=== PATIENT | male | born 1950 | race Caucasian/White ===

== ENCOUNTER 2018-07-23 11:33 | Inpatient (IN) ==
[2018-07-23] MEDS ORDERED: THIAMINE HCL 200 MG in SODIUM CHLORIDE 0.9% 50 ML IV STA ×2 (11:58→12:15)
[2018-07-23] MEDS ORDERED: MAGNESIUM SULFATE / D5W 1 GM/100 ML BAG IV ONE (11:58)
[2018-07-23] MEDS ORDERED: dilTIAZem HCl 5 MG/ML 5 ML VIAL IV STA ×2 (11:58→12:30)
--- NOTE | 2018-07-23 12:00 | Emergency Department Note ---
Entered by Francy Gruber acting as a scribe for Riley Bautista DO History of Present Illness General Chief complaint: Arrhythmia/Palpitations Stated complaint: SHORT OF BREAT,RAPID PULSE Source: patient History of Present Illness Onset (ago): week(s) (a few weeks) Location: chest Severity: similar to prior episodes (when he had pneumonia 1 year ago) Quality: + other (arrhythmia) Associated symptoms: + shortness of breath and + other (Positive rapid heart beat, bilateral leg swelling. 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 He reports he has been experiencing SOB and a rapid heart beat for the past few weeks. He notes he had pneumonia one year ago and this feels similar. Pt has bilateral leg swelling but denies any chest pain or a hx or an irregular heart rate. Pt drinks a six pack of beer a day and uses smokeless tobacco. Home Medications Home Medications Medication Instructions Recorded Confirmed Type No Known Home Medications 07/23/18 07/23/18 History Allergies Allergy/AdvReac Type Severity Reaction Status Date / Time No Known Drug Allergies Allergy Unknown Verified 07/23/18 12:15 Past Med/Surg History Medical History No significant past medical history History of pneumonia (Resolved) Surgical History History of vasectomy Social History Preferred Language: Kosovan Communication Ability: Effective Theatrical Performer Required: No Beliefs That Will Affect Care: None marital status: Current Living Situation: Spouse Other Information That Helps Us Care for You: No Feels Safe at Home: Yes Safety Concerns: Feels Safe At This Time Smoking Status: Current every day smoker Hx Alcohol Use: Yes Hx Substance Use: No Review of Systems See HPI for pertinent positives & negatives. and A total of 10 systems reviewed and were otherwise negative Physical Exam Vital Signs Vital Signs - 24 hr 07/23/18 11:38 07/23/18 11:48 07/23/18 11:50 Temperature 36.7 C Temperature Source Oral Sepsis Recent Fever Within 48 Hours No Sepsis New/Unexplained Change in Mental Status No Sepsis Action Taken by Nursing No Action Required Pulse Rate 122 H 121 H 121 H Pulse Rate [Finger] Pulse Rate from SpO2 Sensor Pulse Rhythm Regular Pulse Strength Normal Respiratory Rate 20 15 18 Respiratory Effort / Characteristics Non-Labored Spontaneous Respiratory Depth Normal Respiratory Pattern Regular Blood Pressure 222/148 H Blood Pressure [Left Arm] Blood Pressure [Right Arm] Blood Pressure Mean 172 Blood Pressure Mean [Left Arm] Blood Pressure Mean [Right Arm] Blood Pressure Position Sitting Blood Pressure Position [Left Arm] Blood Pressure Position [Right Arm] Pulse Oximetry 97 Oxygen Delivery Method Room Air 07/23/18 11:52 07/23/18 11:53 07/23/18 12:00 Temperature Temperature Source Sepsis Recent Fever Within 48 Hours Sepsis New/Unexplained Change in Mental Status Sepsis Action Taken by Nursing Pulse Rate 121 H 121 H Pulse Rate [Finger] 122 H Pulse Rate from SpO2 Sensor 121 H 122 H Pulse Rhythm Pulse Strength Respiratory Rate 20 19 13 Respiratory Effort / Characteristics Respiratory Depth Respiratory Pattern Blood Pressure 210/128 H 190/129 H Blood Pressure [Left Arm] Blood Pressure [Right Arm] 210/128 H Blood Pressure Mean 155 149 Blood Pressure Mean [Left Arm] Blood Pressure Mean [Right Arm] 155 Blood Pressure Position Blood Pressure Position [Left Arm] Blood Pressure Position [Right Arm] Pulse Oximetry 95 97 96 Oxygen Delivery Method Room Air 07/23/18 12:10 07/23/18 12:15 07/23/18 12:30 Temperature Temperature Source Sepsis Recent Fever Within 48 Hours Sepsis New/Unexplained Change in Mental Status Sepsis Action Taken by Nursing Pulse Rate 121 H 121 H 121 H Pulse Rate [Finger] Pulse Rate from SpO2 Sensor 121 H 122 H 121 H Pulse Rhythm Pulse Strength Respiratory Rate 18 15 27 H Respiratory Effort / Characteristics Respiratory Depth Respiratory Pattern Blood Pressure 179/123 H 198/123 H Blood Pressure [Left Arm] Blood Pressure [Right Arm] Blood Pressure Mean 141 148 Blood Pressure Mean [Left Arm] Blood Pressure Mean [Right Arm] Blood Pressure Position Blood Pressure Position [Left Arm] Blood Pressure Position [Right Arm] Pulse Oximetry 96 95 96 Oxygen Delivery Method 07/23/18 12:38 07/23/18 12:45 07/23/18 13:00 Temperature Temperature Source Sepsis Recent Fever Within 48 Hours Sepsis New/Unexplained Change in Mental Status Sepsis Action Taken by Nursing Pulse Rate 122 H 122 H Pulse Rate [Finger] 121 H Pulse Rate from SpO2 Sensor 122 H 122 H Pulse Rhythm Pulse Strength Respiratory Rate 22 18 18 Respiratory Effort / Characteristics Respiratory Depth Respiratory Pattern Blood Pressure 182/110 H 178/117 H Blood Pressure [Left Arm] Blood Pressure [Right Arm] 198/123 H Blood Pressure Mean 134 137 Blood Pressure Mean [Left Arm] Blood Pressure Mean [Right Arm] 148 Blood Pressure Position Blood Pressure Position [Left Arm] Blood Pressure Position [Right Arm] Pulse Oximetry 93 94 94 Oxygen Delivery Method Room Air 07/23/18 13:07 07/23/18 13:15 07/23/18 13:31 Temperature Temperature Source Sepsis Recent Fever Within 48 Hours Sepsis New/Unexplained Change in Mental Status Sepsis Action Taken by Nursing Pulse Rate 122 H 122 H Pulse Rate [Finger] 122 H Pulse Rate from SpO2 Sensor 122 H 123 H Pulse Rhythm Pulse Strength Respiratory Rate 17 19 18 Respiratory Effort / Characteristics Respiratory Depth Respiratory Pattern Blood Pressure 179/122 H 196/126 H Blood Pressure [Left Arm] Blood Pressure [Right Arm] 178/117 H Blood Pressure Mean 141 149 Blood Pressure Mean [Left Arm] Blood Pressure Mean [Right Arm] 137 Blood Pressure Position Blood Pressure Position [Left Arm] Blood Pressure Position [Right Arm] Pulse Oximetry 94 95 95 Oxygen Delivery Method Room Air 07/23/18 13:32 07/23/18 13:45 07/23/18 13:46 Temperature Temperature Source Sepsis Recent Fever Within 48 Hours Sepsis New/Unexplained Change in Mental Status Sepsis Action Taken by Nursing Pulse Rate 122 H 121 H 122 H Pulse Rate [Finger] Pulse Rate from SpO2 Sensor 122 H 122 H Pulse Rhythm Pulse Strength Respiratory Rate 17 20 Respiratory Effort / Characteristics Respiratory Depth Respiratory Pattern Blood Pressure 182/121 H 182/121 H Blood Pressure [Left Arm] Blood Pressure [Right Arm] Blood Pressure Mean 141 Blood Pressure Mean [Left Arm] Blood Pressure Mean [Right Arm] Blood Pressure Position Blood Pressure Position [Left Arm] Blood Pressure Position [Right Arm] Pulse Oximetry 95 96 Oxygen Delivery Method 07/23/18 13:51 07/23/18 13:52 07/23/18 13:56 Temperature Temperature Source Sepsis Recent Fever Within 48 Hours Sepsis New/Unexplained Change in Mental Status Sepsis Action Taken by Nursing Pulse Rate 119 H 118 H Pulse Rate [Finger] 120 H Pulse Rate from SpO2 Sensor 119 H 119 H Pulse Rhythm Pulse Strength Respiratory Rate 12 15 15 Respiratory Effort / Characteristics Respiratory Depth Respiratory Pattern Blood Pressure 172/125 H 163/122 H Blood Pressure [Left Arm] Blood Pressure [Right Arm] 182/121 H Blood Pressure Mean 140 135 Blood Pressure Mean [Left Arm] Blood Pressure Mean [Right Arm] 141 Blood Pressure Position Blood Pressure Position [Left Arm] Blood Pressure Position [Right Arm] Pulse Oximetry 95 93 95 Oxygen Delivery Method Room Air 07/23/18 14:00 07/23/18 14:01 07/23/18 14:04 Temperature Temperature Source Sepsis Recent Fever Within 48 Hours Sepsis New/Unexplained Change in Mental Status Sepsis Action Taken by Nursing Pulse Rate 118 H 118 H 118 H Pulse Rate [Finger] Pulse Rate from SpO2 Sensor 119 H 118 H 118 H Pulse Rhythm Pulse Strength Respiratory Rate 22 23 18 Respiratory Effort / Characteristics Respiratory Depth Respiratory Pattern Blood Pressure 163/124 H 164/129 H Blood Pressure [Left Arm] Blood Pressure [Right Arm] Blood Pressure Mean 137 140 Blood Pressure Mean [Left Arm] Blood Pressure Mean [Right Arm] Blood Pressure Position Blood Pressure Position [Left Arm] Blood Pressure Position [Right Arm] Pulse Oximetry 96 95 96 Oxygen Delivery Method 07/23/18 14:05 07/23/18 14:06 07/23/18 14:07 Temperature Temperature Source Sepsis Recent Fever Within 48 Hours Sepsis New/Unexplained Change in Mental Status Sepsis Action Taken by Nursing Pulse Rate 118 H 118 H 118 H Pulse Rate [Finger] 118 H Pulse Rate from SpO2 Sensor 119 H 118 H 118 H Pulse Rhythm Pulse Strength Respiratory Rate 22 18 17 Respiratory Effort / Characteristics Non-Labored Spontaneous Respiratory Depth Normal Respiratory Pattern Regular Blood Pressure 163/126 H 165/123 H Blood Pressure [Left Arm] Blood Pressure [Right Arm] 165/123 H Blood Pressure Mean 138 137 Blood Pressure Mean [Left Arm] Blood Pressure Mean [Right Arm] 137 Blood Pressure Position Blood Pressure Position [Left Arm] Blood Pressure Position [Right Arm] Pulse Oximetry 94 95 96 Oxygen Delivery Method Room Air 07/23/18 14:08 07/23/18 14:09 07/23/18 14:10 Temperature Temperature Source Sepsis Recent Fever Within 48 Hours Sepsis New/Unexplained Change in Mental Status Sepsis Action Taken by Nursing Pulse Rate 118 H 118 H 118 H Pulse Rate [Finger] Pulse Rate from SpO2 Sensor 118 H 118 H 118 H Pulse Rhythm Pulse Strength Respiratory Rate 15 15 21 Respiratory Effort / Characteristics Respiratory Depth Respiratory Pattern Blood Pressure 165/125 H 154/118 H Blood Pressure [Left Arm] Blood Pressure [Right Arm] Blood Pressure Mean 138 130 Blood Pressure Mean [Left Arm] Blood Pressure Mean [Right Arm] Blood Pressure Position Blood Pressure Position [Left Arm] Blood Pressure Position [Right Arm] Pulse Oximetry 95 94 96 Oxygen Delivery Method 07/23/18 14:12 07/23/18 14:13 07/23/18 14:14 Temperature Temperature Source Sepsis Recent Fever Within 48 Hours Sepsis New/Unexplained Change in Mental Status Sepsis Action Taken by Nursing Pulse Rate 118 H 117 H Pulse Rate [Finger] 118 H 118 H Pulse Rate from SpO2 Sensor 118 H Pulse Rhythm Pulse Strength Respiratory Rate 17 20 25 H Respiratory Effort / Characteristics Non-Labored Spontaneous Non-Labored Spontaneous Respiratory Depth Normal Normal Respiratory Pattern Regular Regular Blood Pressure 165/121 H Blood Pressure [Left Arm] Blood Pressure [Right Arm] 154/118 H 165/121 H Blood Pressure Mean 135 Blood Pressure Mean [Left Arm] Blood Pressure Mean [Right Arm] 130 135 Blood Pressure Position Blood Pressure Position [Left Arm] Blood Pressure Position [Right Arm] Pulse Oximetry 95 94 Oxygen Delivery Method Room Air Room Air 07/23/18 14:15 07/23/18 14:27 07/23/18 14:29 Temperature Temperature Source Sepsis Recent Fever Within 48 Hours Sepsis New/Unexplained Change in Mental Status Sepsis Action Taken by Nursing Pulse Rate 117 H 116 H Pulse Rate [Finger] 117 H Pulse Rate from SpO2 Sensor 117 H Pulse Rhythm Pulse Strength Respiratory Rate 15 16 Respiratory Effort / Characteristics Respiratory Depth Respiratory Pattern Blood Pressure 152/119 H 152/119 H Blood Pressure [Left Arm] Blood Pressure [Right Arm] 152/119 H Blood Pressure Mean 130 Blood Pressure Mean [Left Arm] Blood Pressure Mean [Right Arm] 130 Blood Pressure Position Blood Pressure Position [Left Arm] Blood Pressure Position [Right Arm] Pulse Oximetry 95 95 Oxygen Delivery Method Room Air 07/23/18 15:34 07/23/18 15:45 07/23/18 16:00 Temperature 36.6 C Temperature Source Oral Sepsis Recent Fever Within 48 Hours Sepsis New/Unexplained Change in Mental Status Sepsis Action Taken by Nursing Pulse Rate Pulse Rate [Finger] 103 H 108 H Pulse Rate from SpO2 Sensor Pulse Rhythm Pulse Strength Respiratory Rate 14 14 18 Respiratory Effort / Characteristics Non-Labored Respiratory Depth Normal Respiratory Pattern Blood Pressure Blood Pressure [Left Arm] Blood Pressure [Right Arm] 166/103 H 165/109 H Blood Pressure Mean Blood Pressure Mean [Left Arm] Blood Pressure Mean [Right Arm] 124 127 Blood Pressure Position Blood Pressure Position [Left Arm] Blood Pressure Position [Right Arm] Sitting Pulse Oximetry 95 95 92 Oxygen Delivery Method Room Air Room Air Room Air 07/23/18 19:10 Temperature 37.0 C Temperature Source Oral Sepsis Recent Fever Within 48 Hours Sepsis New/Unexplained Change in Mental Status Sepsis Action Taken by Nursing Pulse Rate Pulse Rate [Finger] 80 Pulse Rate from SpO2 Sensor Pulse Rhythm Pulse Strength Respiratory Rate 18 Respiratory Effort / Characteristics Respiratory Depth Normal Respiratory Pattern Blood Pressure Blood Pressure [Left Arm] 129/82 Blood Pressure [Right Arm] Blood Pressure Mean Blood Pressure Mean [Left Arm] 97 Blood Pressure Mean [Right Arm] Blood Pressure Position Blood Pressure Position [Left Arm] Sitting Blood Pressure Position [Right Arm] Pulse Oximetry 95 Oxygen Delivery Method Room Air GENERAL: Patient is awake alert in no acute distress patient is resting comfortably and showing no signs of anxiety EYES: The conjunctivae are clear. The pupils are round and reactive. EARS, NOSE, MOUTH AND THROAT: The nose is without any evidence of any deformity. Mucous membranes are moist tongue is midline NECK: The neck is nontender and supple. RESPIRATORY: Normal respiratory effort is noted there is no evidence of wheezing rhonchi or rales CARDIOVASCULAR: Tachycardic rate with regular rhythm was noted. There is no definite murmur noted to auscultation. GASTROINTESTINAL: The abdomen is moderately distended but soft. There is no tenderness guarding or rigidity. PELVIS: The Pelvis is stable. No tenderness to palpation is noted. BACK: No midline tenderness or or step-off noted range of motion in flexion extension as well as rotation no signs of muscle spasm noted MUSCULOSKELETAL/EXTREMITIES: There is no evidence of gross deformity full range of motion is noted in the hips and shoulders SKIN: There is no obvious evidence of any rash. Pedal edema was noted bilaterally. NEUROLOGIC: Patient is awake alert and oriented x3. Course 1154: Past medical records reviewed. The patient was evaluated in room D1, and a complete history and physical examination were performed. 1346: I reviewed the patient's case with Tanika Adams. Dr. Sagastume, [facility] Hospitalist will evaluate the patient for further manage ment. Consultations Consultation #1: I reviewed the patient's case with Tanika Adams. Tanika Orr Hospitalist will evaluate the patient for further management. Time: 13:46 Administered Medications Atorvastatin Calcium (Lipitor) 80 mg PO QAM [facility] Stop: 08/22/18 17:44 Last Admin: 07/23/18 18:26 Dose: 80 mg Documented by: [id number] Diltiazem HCl 125 mg/ Dextrose 125 mls @ 5 mls/hr IV .Q24H CARLOS A; Protocol Stop: 08/22/18 14:44 Last Titration: 07/23/18 16:25 Dose: 10 mg/hr, 10 mls/hr Documented by: [id number] Admin: 07/23/18 15:30 Dose: 5 mg/hr, 5 mls/hr Documented by: [id number] Cosigned by: [id number] Heparin Sodium/Dextrose (Heparin Sodium/Dextrose) 25,000 units in 500 mls @ 32 mls/hr IV .[id number] CARLOS A; Protocol Stop: 08/22/18 14:44 Last Admin: 07/23/18 15:30 Dose: 1,600 units/hr, 32 mls/hr Documented by: [id number] Cosigned by: [id number] Metoprolol Tartrate (Lopressor) 12.5 mg PO Q6 CARLOS A Stop: 08/22/18 17:59 Last Admin: 07/23/18 18:26 Dose: 12.5 mg Documented by: [id number] Discontinued Medications Diltiazem HCl (Cardizem) 10 mg IV NOW STA Stop: 07/23/18 11:59 Last Admin: 07/23/18 12:05 Dose: 10 mg Documented by: [id number] Cosigned by: [id number] Diltiazem HCl (Cardizem) 10 mg IV NOW STA Stop: 07/23/18 12:31 Last Admin: 07/23/18 12:33 Dose: 10 mg Documented by: [id number] Cosigned by: [id number] Gabapentin (Neurontin) 1,200 mg PO TODAY@1700 ONE Stop: 07/23/18 17:01 Last Admin: 07/23/18 17:24 Dose: 1,200 mg Documented by: [id number] Cosigned by: [id number] Heparin Sodium (Porcine) (Heparin Iv Bolus) 7,000 units IV NOW STA Stop: 07/23/18 14:42 Last Admin: 07/23/18 15:29 Dose: 7,000 units Documented by: [id number] Cosigned by: [id number] Heparin Sodium/Dextrose () 1 ea IV Q15M CARLOS A; Protocol Stop: 07/23/18 17:39 Last Admin: 07/23/18 18:24 Dose: Not Given Documented by: [id number] Magnesium Sulfate/Dextrose (Magnesium Sulfate / D5w) 1 gm in 100 mls @ 100 mls/hr IV ONE ONE Stop: 07/23/18 12:57 Last Infusion: 07/23/18 13:05 Dose: 0 mls/hr Documented by: [id number] Admin: 07/23/18 12:03 Dose: 100 mls/hr Documented by: [id number] Thiamine HCl 200 mg/ Sodium (Chloride) 52 mls @ 210 mls/hr IV NOW STA Stop: 07/23/18 12:29 Last Infusion: 07/23/18 13:02 Dose: 0 mls/hr Documented by: [id number] Admin: 07/23/18 12:46 Dose: 210 mls/hr Documented by: [id number] Furosemide 20 mg/ Syringe 2 mls @ 4 mls/min IV NOW ONE Stop: 07/23/18 16:46 Last Admin: 07/23/18 17:24 Dose: 4 mls/min Documented by: [id number] Cosigned by: [id number] Metoprolol Tartrate (Lopressor) 5 mg IV Q5M PRN PRN Reason: Tachycardia Stop: 08/22/18 13:32 Last Admin: 07/23/18 14:27 Dose: 5 mg Documented by: [id number] Admin: 07/23/18 14:09 Dose: 5 mg Documented by: [id number] Admin: 07/23/18 13:46 Dose: 5 mg Documented by: [id number] Medical Decision Making Differential Diagnosis Differential diagnosis: Etiologies such as premature contractions, electrolyte abnormality, cardiac dysrhythmia, thyroid dysfunction, pulmonary embolism, infection, gastrointestinal, as well as others were entertained. Medical Records Attestation: I reviewed the patient's medical records. Home Medications Current Medication List: was personally reviewed by me Laboratory Data Attestation: I reviewed the patient's lab results. Result diagrams: 07/23/18 11:47 07/23/18 11:47 Lab Results 07/23/18 07/23/18 07/23/18 Range/Units 11:47 11:47 11:47 WBC 12.82 H (4.8-10.8) K/uL RBC 5.01 (4.7-6.1) M/uL Hgb 16.4 (14.0-18.0) g/dL Hct 48.1 (42-52) % MCV 96.0 (80-100) fL MCH 32.7 (25-34) pg MCHC 34.1 (32-36) g/dL RDW Std Deviation 47.1 H (36.4-46.3) fL RDW Coeff of Patrick 13.4 (11.5-14.5) % Plt Count 345 (130-400) K/uL MPV 9.5 (7.4-10.4) fL Immature Gran % (Auto) 0.2 % Neut % (Auto) 78.6 % Lymph % (Auto) 8.2 % Roberts % (Auto) 12.4 % Eos % (Auto) 0.3 % Baso % (Auto) 0.3 % Immature Gran # (Auto) 0.03 H (0.00-0.02) K/uL Neut # (Auto) 10.07 H (1.4-6.5) K/uL Lymph # (Auto) 1.05 L (1.2-3.4) K/uL Roberts # (Auto) 1.59 H (0.11-0.59) K/uL Eos # (Auto) 0.04 (0-0.5) K/uL Baso # (Auto) 0.04 (0-0.2) K/uL PT 11.1 (9.0-12.0) Seconds INR 1.1 (0.9-1.1) APTT 26.2 (21.0-31.0) Seconds PTT Ratio 1.0 Sodium (136-145) mmol/L Potassium (3.5-5.1) mmol/L Chloride (98-107) mmol/L Carbon Dioxide (21-32) mmol/L Anion Gap (3-11) BUN (7-18) mg/dl Creatinine (0.6-1.4) mg/dl Est Cr Clr Drug Dosing ml/min Est GFR ( Amer) Est GFR (Non-Af Amer) BUN/Creatinine Ratio (10-20) Glucose (70-99) mg/dl Calcium (8.5-10.1) mg/dl Magnesium Cancelled Total Bilirubin (0.2-1) mg/dl AST (15-37) U/L ALT (12-78) U/L Alkaline Phosphatase (45-117) U/L Troponin I (0-0.045) ng/ml NT-Pro-B Natriuret Pep (0-900) pg/ml Total Protein (6.4-8.2) gm/dl Albumin (3.4-5.0) gm/dl Globulin (2.5-4.0) gm/dl Albumin/Globulin Ratio (0.9-2) TSH (0.300-4.500) uIu/ml Urine Color Urine Appearance (Clear) Urine pH (4.5-7.5) Ur Specific [place] (1.000-1.030) Urine Protein (Negative) Urine Glucose (UA) (Negative) Urine Ketones (Negative) Urine Blood (Negative) Urine Nitrite (Negative) Urine Bilirubin (Negative) Urine Urobilinogen (Negative) Ur Leukocyte Esterase (Negative) 07/23/18 07/23/18 07/23/18 Range/Units 11:47 13:30 16:22 WBC (4.8-10.8) K/uL RBC (4.7-6.1) M/uL Hgb (14.0-18.0) g/dL Hct (42-52) % MCV (80-100) fL MCH (25-34) pg MCHC (32-36) g/dL RDW Std Deviation (36.4-46.3) fL RDW Coeff of Patrick (11.5-14.5) % Plt Count (130-400) K/uL MPV (7.4-10.4) fL Immature Gran % (Auto) % Neut % (Auto) % Lymph % (Auto) % Roberts % (Auto) % Eos % (Auto) % Baso % (Auto) % Immature Gran # (Auto) (0.00-0.02) K/uL Neut # (Auto) (1.4-6.5) K/uL Lymph # (Auto) (1.2-3.4) K/uL Roberts # (Auto) (0.11-0.59) K/uL Eos # (Auto) (0-0.5) K/uL Baso # (Auto) (0-0.2) K/uL PT (9.0-12.0) Seconds INR (0.9-1.1) APTT (21.0-31.0) Seconds PTT Ratio Sodium 135 L (136-145) mmol/L Potassium 4.0 (3.5-5.1) mmol/L Chloride 103 (98-107) mmol/L Carbon Dioxide 25 (21-32) mmol/L Anion Gap 7.0 (3-11) BUN 15 (7-18) mg/dl Creatinine 1.24 (0.6-1.4) mg/dl Est Cr Clr Drug Dosing 70.4 ml/min Est GFR ( Amer) 68.3 Est GFR (Non-Af Amer) 58.9 BUN/Creatinine Ratio 11.9 (10-20) Glucose 130 H (70-99) mg/dl Calcium 8.7 (8.5-10.1) mg/dl Magnesium 2.3 Total Bilirubin 1.3 H (0.2-1) mg/dl AST 33 (15-37) U/L ALT 75 (12-78) U/L Alkaline Phosphatase 67 (45-117) U/L Troponin I 0.049 H* 0.070 H* (0-0.045) ng/ml NT-Pro-B Natriuret Pep 8076 H (0-900) pg/ml Total Protein 7.3 (6.4-8.2) gm/dl Albumin 3.7 (3.4-5.0) gm/dl Globulin 3.6 (2.5-4.0) gm/dl Albumin/Globulin Ratio 1.0 (0.9-2) TSH 2.590 (0.300-4.500) uIu/ml Urine Color Yellow Urine Appearance Clear (Clear) Urine pH 6.0 (4.5-7.5) Ur Specific [place] 1.010 (1.000-1.030) Urine Protein Negative (Negative) Urine Glucose (UA) Negative (Negative) Urine Ketones Trace H (Negative) Urine Blood Negative (Negative) Urine Nitrite Negative (Negative) Urine Bilirubin Negative (Negative) Urine Urobilinogen Negative (Negative) Ur Leukocyte Esterase Negative (Negative) Imaging Data Radiologist's Impression: Radiology results as stated below per my review and the radiologist's interpretation: SINGLE VIEW CHEST CLINICAL HISTORY: Generalized weakness. FINDINGS: An AP, portable, upright chest radiograph is obtained. No prior studies are available for comparison at the time of dictation. The examination is degraded by portable technique and patient rotation. The heart is enlarged and there is atherosclerotic calcification of the thoracic aorta. There is pulmonary vascular congestion. Perihilar airspace opacities likely represent a component of interstitial edema. There are small pleural effusions, right larger than left with bibasilar consolidation. No pneumothorax is seen. The skeletal structures are osteopenic. The bony thorax is grossly intact. IMPRESSION: 1. Cardiomegaly with evidence of congestive failure. 2. Perihilar airspace opacities likely represent a component of interstitial edema. Correlate clinically for evidence of a superimposed infectious/inflammatory pneumonitis. Radiographic follow-up to resolution is recommended. 3. There are small pleural effusions, right larger than left. Electronically signed by: Tee Mcnulty M.D. 07/23/2018 12:31 PM ECG Data Attestation: I personally reviewed and interpreted this ECG as follows: Indication: palpitations Rate (beats per minute): 121 Rhythm: atrial flutter Findings: + other (poor R wave progression noted, LVH was suggested by voltage criteria) and + ST depression (Inferior) Comparison ECG Date: no prior available Additional Comments: Repeat EKG: Atrial fibrillation, rate of 98, frequent PVCs noted. Similar to earlier tracing Blood Pressure Blood Pressure Findings: Elevated blood pressure Blood Pressure Disposition: further management by hospitalist [facility] Narrative The patient is a 67-year-old male who presented to the emergency department for an evaluation of palpitations. The patient was found to be in atrial flutter. His blood pressure was very elevated. He was also found to be in pulmonary edema. The patient was treated with IV magnesium IV thiamine IV Cardizem and IV Lopressor. His symptoms slowly improved while he was in the emergency department. The patient did have an abnormal EKG with an elevated troponin. I discussed his case with the on-call [facility] hospitalist group. They have agreed to evaluate the patient in the emergency department for further management and disposition. The patient was reevaluated multiple times. His condition continued to improve. Impression & Plan Atrial flutter with rapid ventricular response, Elevated troponin, Pulmonary edema Critical Care Time I have personally spent greater than 35 minutes of critical care time in the direct management of this patient. This includes bedside care, interpretation of diagnostic studies, and testing, discussion with consultants, patient, and family members, and other required patient management activities. This 35 minutes is in excess of all separately billable procedures. Critical Care Time: Yes Total Critical Care Time: 35 Discharge Plan Visit Data *Final* Discharge Date/Time: 07/23/18 15:45 Chief Complaint: Arrhythmia/Palpitations Stated Complaint: SHORT OF BREAT,RAPID PULSE ED Provider: Riley Bautista Discharge Problem: Atrial flutter with rapid ventricular response, Elevated troponin, Pulmonary edema Patient Disposition: Admitted As Inpatient Discharge Instructions Interventions: ED Discharge Assessment Last Done: 07/23/18 15:45 Discharge Problem: Pulmonary edema Qualifiers: Chronicity: acute Qualified Code(s): J81.0 - Acute pulmonary edema The scribe's documentation has been prepared under my direction and personally reviewed by me in its entirety. I confirm that the note above accurately refle cts all work, treatment, procedures, and medical decision making performed by me.
[2018-07-23 12:05] LABS: Basophils # (auto) 0.04 K/uL (0-0.2); Basophils % (auto) 0.3 %; Eosinophils # (auto) 0.04 K/uL (0-0.5); Eosinophils % (auto) 0.3 %; Hematocrit (blood only) 48.1 % (42-52); Hemoglobin 16.4 g/dL (14.0-18.0); Immature Granulocytes # (auto) 0.03 K/uL (0.00-0.02); Immature Granulocytes % (auto) 0.2 %; Lymphocytes # (auto) 1.05 K/uL (1.2-3.4); Lymphocytes % (auto) 8.2 %; Mean Corpuscular Hgb Conc 34.1 g/dL (32-36); Mean Platelet Volume 9.5 fL (7.4-10.4); Monocytes # (auto) 1.59 K/uL (0.11-0.59); Monocytes % (auto) 12.4 %; Neutrophils # (auto) 10.07 K/uL (1.4-6.5); Neutrophils % (auto) 78.6 %; Platelet Count 345 K/uL (130-400); RDW Coefficient of Variation 13.4 % (11.5-14.5); RDW Standard Deviation 47.1 fL (36.4-46.3); Red Blood Count 5.01 M/uL (4.7-6.1); White Blood Count 12.82 K/uL (4.8-10.8)
[2018-07-23 12:16] LABS: INR 1.1 (0.9-1.1); Partial Thromboplastin Time 26.2 Seconds (21.0-31.0); Prothrombin Time 11.1 Seconds (9.0-12.0)
[2018-07-23 12:27] LABS: Albumin Level 3.7 gm/dl (3.4-5.0); BUN Creatinine Ratio 11.9 (10-20); Calcium 8.7 mg/dl (8.5-10.1); Creatinine Clr Calc Pharmacy 70.4 ml/min; Est GFR (African American) 68.3; Est GFR (Non-African American) 58.9; Magnesium 2.3 mg/dl (1.8-2.4)
--- NOTE | 2018-07-23 12:33 | XRay Report ---
SINGLE VIEW CHEST CLINICAL HISTORY: Generalized weakness. FINDINGS: An AP, portable, upright chest radiograph is obtained. No prior studies are available for c omparison at the time of dictation. The examination is degraded by portable technique and patient rot ation. The heart is enlarged and there is atherosclerotic calcification of the thoracic aorta. There is pulmonary vascular congestion. Perihilar airspace opacities likely represent a component of inter stitial edema. There are small pleural effusions, right larger than left with bibasilar consolidation . No pneumothorax is seen. The skeletal structures are osteopenic. The bony thorax is grossly intact. IMPRESSION: 1. Cardiomegaly with evidence of congestive failure. 2. Perihilar airspace opacities likely represent a component of interstitial edema. Correlate clinica lly for evidence of a superimposed infectious/inflammatory pneumonitis. Radiographic follow-up to res olution is recommended. 3. There are small pleural effusions, right larger than left. Electronically signed by: Tee Mcnulty M.D. 07/23/2018 12:31 PM
[2018-07-23 12:44] LABS: Bilirubin,Total 1.3 mg/dl (0.2-1); Globulin 3.6 gm/dl (2.5-4.0); Total Protein 7.3 gm/dl (6.4-8.2); Troponin I 0.049 ng/ml (0-0.045)
[2018-07-23] MEDS: METOPROLOL TARTRATE 1 MG/ML VIAL IV PRN ×3 (13:46→14:27)
[2018-07-23 13:58] LABS: Appearance Urine Clear (Clear); Bilirubin Urine Negative (Negative); Blood Urine Negative (Negative); Color Urine Yellow; Glucose Urine UA Negative (Negative); Ketones Urine Trace (Negative); Leukocyte Esterase Urine Negative (Negative); Nitrite Urine Negative (Negative); Protein Urine Negative (Negative); Urobilinogen Urine Negative (Negative)
[2018-07-23] MEDS ORDERED: HEPARIN BOLUS ED USE ONLY IV STA (14:41)
[2018-07-23] MEDS: dilTIAZem HCl 125 MG in DEXTROSE 5% 100 ML IV SCH (15:30)
[2018-07-23] MEDS: HEPARIN STANDARD DEXTROSE 25,000 UNITS/500 ML IV SCH (15:30)
--- NOTE | 2018-07-23 15:59 | History & Physical Report ---
Date of Service July 23, 2018 Assessment & Plan (1) Atrial flutter with rapid ventricular response: In ED patient was noted to be in rapid atrial flutter with heart rates consistently in the 120s, elevated troponin 0 0.049, chest x-ray consistent with cardiomegaly and congestive changes with perihilar airspace opacity and interstitial edema Received IV diltiazem 10 mg bolus x2 and metoprolol IV x1 with slight decrease in heart rate to the 110s Blood pressure significantly elevated upon arrival at 222/148 and upon my evaluation was 166/103 Patient currently in rapid atrial flutter likely secondary to hypertensive heart disease, acute CHF, EtOH abuse -Admit to telemetry -Consult cardiology, Dr. Jacobo -Placed on diltiazem drip for rate control -Chadsvasc score =3, place on heparin gtt -Give Lasix IV 20 mg x1 secondary to congestive heart failure, he is Lasix margo so we will monitor for appropriate response for further diuresis -Monitor daily weights, strict I's and O's -Trend troponin every 6 hours, repeat ECG in a.m. -Obtain echocardiogram -Fasting lipid panel and A1c in a.m. (2) CHF (congestive heart failure): -Give Lasix IV 20 mg x1 now, monitor for appropriate response prior to additional dosing -Obtain echocardiogram -Strict I's and O's -Daily weights -EtOH cessation and nicotine cessation (3) Elevated troponin: -Plan as above (4) Hypertensive urgency: -Patient presented with BP 222/148 and upon my examination was 166/103 -Patient with likely undiagnosed hypertensive heart disease -Placing on diltiazem drip as well as IV Lasix -obtain adequate BP control and will likely need discharged on antihypertensive therapy (5) ETOH abuse: -Patient drinks 6 light beers daily, will place on alcohol withdrawal protocol with gabapentin taper and as needed lorazepam -Received IV thiamine while in ED -Will place on thiamine and folic acid supplementation daily -Recommend EtOH cessation (6) Tobacco abuse: -Patient currently does not wish to have nicotine patch, monitor -Discussed tobacco cessation (7) Full code status: Disposition: D/C to home when able Follow up: Patient will need to establish with primary care provider as well as appropriate cardiology follow-up Patient was seen and examined in collaboration with Dr. Salazar, please see addendum History of Present Illness Chief Complaint: FLORES times 3 weeks. Primary Care Provider: NO PCP This is a 67-year-old white male who has no known past medical history and has not sought medical care for 30+ years. is at bedside. He presents to [facility] secondary to FLORES times 3 weeks. Over the past 3 weeks patient has noticed increasing shortness of breath with exertion, including climbing steps at his house, paroxysmal nocturnal dyspnea relieved with sleeping in recliner, increased fatigue. Patient noticed yesterday when feeling pulse his heart was "beating very fast." "This may be scared which is why I came to ER." He denies any recent illness. He does not take any medications. He denies fever, chills, sweats, lightheadedness, dizziness, syncope, chest pain, shortness of breath at rest, coughing, hemoptysis, nausea, vomiting, diarrhea, abdominal pain, dysuria, increased frequency or urgency with urination. He denies any harvey weight gain and no overt swelling. He is a chronic tobacco abuser in which he chews 1 can of snuff a day and has a previous smoking history of 15-20 pack years. Further he drinks 6 light beers a day for many years. His father suffered a heart attack in his 30s, otherwise no known family history of heart disease, diabetes or CVA. His mother and father were both from cancer. Allergies Allergy/AdvReac Type Severity Reaction Status Date / Time No Known Drug Allergies Allergy Unknown Verified 07/23/18 12:15 Home Medications Home Medications Medication Instructions Recorded Confirmed Type No Known Home Medications 07/23/18 07/23/18 History Past Med/Surg History Medical History No significant past medical history History of pneumonia (Resolved) Surgical History History of vasectomy Social History Preferred Language: Malay Beliefs That Will Affect Care: None marital status: Current Living Situation: Spouse Other Information That Helps Us Care for You: No Feels Safe at Home: Yes Safety Concerns: Feels Safe At This Time Smoking Status: Current every day smoker Hx Alcohol Use: Yes Hx Substance Use: No Review of Systems All systems reviewed & are unremarkable except as noted in HPI & below Physical Exam Vital Signs (Past 24 Hours): Last Vital Signs Temp 36.7 C 07/23/18 11:38 Pulse 103 H 07/23/18 15:34 Resp 14 07/23/18 15:34 BP 166/103 H 07/23/18 15:34 Pulse Ox 95 07/23/18 15:34 Physical Exam: Gen: WD/WN, M, NAD, sitting up in bed, pleasant, conversing easily Head: Normocephalic, Atraumatic Eyes: Sclera normal, no conjunctival injection, PERRLA, EOMI ENT: Gross hearing intact, normal pharynx, mucous membranes moist Neck: supple, no adenopathy, No JVD, no bruit, Resp: Clear to auscultation b/l, no wheeze, rales, rhonchi. Normal insp/exp effort, no accessory muscle use CV: Tachycardic rate, regular rhythm, no murmur, rub, gallop, or ectopy Abd: Protuberant abdomen, umbilical hernia, diastases recti, +BS x 4, soft, nontender, Musculoskeletal: moves extremities active rom x 4, strength intact, good sports umpire strength Extremities: +1 pretibial edema bilaterally Skin: warm, moist, no rash, negative turgor, cap refill < 2sec Neuro: Alert and oriented x 3, speech normal, good mood/affect, cran nerve 2-12 intact grossly : deferred Results & Data Laboratory Results Short CBC 07/23/18 Range/Units 11:47 WBC 12.82 H (4.8-10.8) K/uL Hgb 16.4 (14.0-18.0) g/dL Hct 48.1 (42-52) % Plt Count 345 (130-400) K/uL BMP 07/23/18 11:47 Sodium 135 L Potassium 4.0 Chloride 103 Carbon Dioxide 25 BUN 15 Creatinine 1.24 Glucose 130 H Calcium 8.7 Cardiac Enzymes 07/23/18 Range/Units 11:47 Troponin I 0.049 H* (0-0.045) ng/ml Liver Function 07/23/18 Range/Units 11:47 Total Bilirubin 1.3 H (0.2-1) mg/dl AST 33 (15-37) U/L ALT 75 (12-78) U/L Alkaline Phosphatase 67 (45-117) U/L Albumin 3.7 (3.4-5.0) gm/dl Urine 07/23/18 Range/Units 13:30 Urine Color Yellow Urine Appearance Clear (Clear) Urine pH 6.0 (4.5-7.5) Ur Specific [place] 1.010 (1.000-1.030) Urine Protein Negative (Negative) Urine Glucose (UA) Negative (Negative) Diagnostic Findings CXR: IMPRESSION: 1. Cardiomegaly with evidence of congestive failure. 2. Perihilar airspace opacities likely represent a component of interstitial edema. Correlate clinically for evidence of a superimposed infectious/inflammatory pneumonitis. Radiographic follow-up to resolution is recommended. 3. There are small pleural effusions, right larger than left. Medications Administered Diltiazem HCl 125 mg/ Dextrose 125 mls @ 5 mls/hr IV .Q24H [facility]; Protocol Stop: 08/22/18 14:44 Last Admin: 07/23/18 15:30 Dose: 5 mg/hr, 5 mls/hr Documented by: [id number] Cosigned by: [id number] Heparin Sodium/Dextrose (Heparin Sodium/Dextrose) 25,000 units in 500 mls @ 32 mls/hr IV .[id number] [facility]; Protocol Stop: 08/22/18 14:44 Last Admin: 07/23/18 15:30 Dose: 1,600 units/hr, 32 mls/hr Documented by: [id number] Cosigned by: [id number] Metoprolol Tartrate (Lopressor) 5 mg IV Q5M PRN PRN Reason: Tachycardia Stop: 08/22/18 13:32 Last Admin: 07/23/18 14:27 Dose: 5 mg Documented by: [id number] Admin: 07/23/18 14:09 Dose: 5 mg Documented by: [id number] Admin: 07/23/18 13:46 Dose: 5 mg Documented by: [id number] Discontinued Medications Diltiazem HCl (Cardizem) 10 mg IV NOW STA Stop: 07/23/18 11:59 Last Admin: 07/23/18 12:05 Dose: 10 mg Documented by: [id number] Cosigned by: [id number] Diltiazem HCl (Cardizem) 10 mg IV NOW STA Stop: 07/23/18 12:31 Last Admin: 07/23/18 12:33 Dose: 10 mg Documented by: [id number] Cosigned by: [id number] Heparin Sodium (Porcine) (Heparin Iv Bolus) 7,000 units IV NOW STA Stop: 07/23/18 14:42 Last Admin: 07/23/18 15:29 Dose: 7,000 units Documented by: [id number] Cosigned by: [id number] Magnesium Sulfate/Dextrose (Magnesium Sulfate / D5w) 1 gm in 100 mls @ 100 mls/hr IV ONE ONE Stop: 07/23/18 12:57 Last Infusion: 07/23/18 13:05 Dose: 0 mls/hr Documented by: [id number] Admin: 07/23/18 12:03 Dose: 100 mls/hr Documented by: [id number] Thiamine HCl 200 mg/ Sodium (Chloride) 52 mls @ 210 mls/hr IV NOW STA Stop: 07/23/18 12:29 Last Infusion: 07/23/18 13:02 Dose: 0 mls/hr Documented by: [id number] Admin: 07/23/18 12:46 Dose: 210 mls/hr Documented by: [id number] ECG Rhythm: atrial flutter Findings: + nonspecific-ST abn and + prolonged QT (525ms) Code Status & VTE Plan Code Status Full Code VTE Prophylaxis Plan VTE Prophylaxis will be ordered: Yes Supervising Physician Co-Signing Physician Notes I have seen and examined the patient and have discussed the case with the provid er above. I agree with the assessment and plan as stated. DO Martin (1) CHF (congestive heart failure) Heart failure chronicity: acute Heart failure type: unspecified Qualified Code(s): I50.9 - Heart failure, unspecified
[2018-07-23] MEDS ORDERED: ZOLPIDEM TARTRATE 5 MG TAB PO PRN (16:18)
[2018-07-23] MEDS ORDERED: POLYETHYLENE (MIRALAX) 17 GM PACK PO PRN (16:18)
[2018-07-23] MEDS ORDERED: ACETAMINOPHEN 325 MG TAB PO PRN (16:18)
[2018-07-23] MEDS ORDERED: ALUMINUM/MAGNESIUM SUSP 30 ML UDC PO PRN (16:18)
[2018-07-23] MEDS ORDERED: MAGNESIUM HYDROXIDE SUSP 30 ML UDC PO PRN (16:18)
[2018-07-23] MEDS ORDERED: LORazepam 1 MG TAB PO PRN (16:18)
[2018-07-23] MEDS ORDERED: GABAPENTIN 1200MG ALCOHOL WITHDRAWAL LOAD PO STA (16:18)
[2018-07-23] MEDS ORDERED: ONDANSETRON INJ 2 MG/ML 2 ML VIAL IV PRN (16:18)
[2018-07-23] MEDS ORDERED: FUROSEMIDE 20 MG in SYRINGE 0 ML IV ONE (16:45)
[2018-07-23] MEDS ORDERED: GABAPENTIN 600 MG TAB PO ONE (17:00)
[2018-07-23 17:15] LABS: Troponin I 0.07 ng/ml (0-0.045)
[2018-07-23] MEDS: METOPROLOL TARTRATE 25 MG TAB PO SCH ×2 (18:26→22:47)
[2018-07-23] MEDS: ATORVASTATIN 40 MG TAB PO SCH (18:26)
--- NOTE | 2018-07-23 22:23 | Consultation Report ---
DATE OF CONSULTATION: 07/23/2018 INPATIENT CARDIOLOGY CONSULTATION CONSULTATION REQUESTED BY: Zahra Pizarro PA-C. REASON FOR CONSULTATION: Atrial flutter with rapid ventricular response. HISTORY OF PRESENT ILLNESS: Mr. Stovall is a very pleasant 67-year-old gentleman with no known medical history because he has not seen a physician in over 30 years. He presented to [facility] on 07/23/2018 with complaints of shortness of breath and a racing heart rate. The patient states that for the last several years, he has noticed that his breathing has not always been as good as he thought it could be, but particularly within the last month or so, he has noticed that it has been significantly declining. He states that for the last month or so, he started getting short of breath with less and less activity, particularly noting that walking up a flight of steps, he may have to stop in the middle to catch his breath. He denied any associated chest pain with this dyspnea and states that in the last week or so, he is also becoming dyspneic at rest, particularly he has noted that he has to get up every morning around 4:00 a.m. to catch his breath and from then on, he sleeps upright in a chair. His has also noticed that his energy levels are significantly decreased in the last week or so and his lower extremities and abdomen have become swollen. He denies any recent change in diet or increased salt intake. He denies ever experiencing any chest pain to his knowledge in his adult lifetime. When questioning on whether or not he has ever had a fever with no explained origin, he states that he had pneumonia several years ago, but no other remarkable events and he denies any rheumatic fever as a child. With his breathing significantly worsened, he came into the Emergency Department and upon arrival, he was found to be in atrial flutter with variable conduction at 120 beats a minute and significantly hypertensive in the 160s/120s. He was started on heparin and Cardizem drip for rate control. He was given 20 mg of IV Lasix with some urination afterwards and admitted to telemetry. On telemetry, his rate has improved to consistently in the 90s-100s, still in atrial flutter. He has remained somewhat hypertensive in the 150s to 160s systolic, and he states he has not ambulated yet, so he does not know if his dyspnea has improved at all, but again he denies any chest pain. The patient's , his daughter and son-in-law were in the room during his time of the examination, and again they agree with the description of his symptoms, they particularly notes that he walks their dog twice a day and he has been having more and more difficulty doing that over the last several weeks. PAST SURGICAL HISTORY: Vasectomy. PAST MEDICAL HISTORY: Denies. FAMILY HISTORY: Noncontributory. SOCIAL HISTORY: The patient chews a can of smokeless tobacco a day and drinks 6 light beers a day Deyanira Light, but denies any recreational drug use. He is and lives at home with his . 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 He exercises by walking the dog. REVIEW OF SYSTEMS: As per HPI. All other review of systems reviewed and negative at this time. ALLERGIES: No known drug allergies. MEDICATIONS AN OUTPATIENT: Denies. PHYSICAL EXAMINATION: VITAL SIGNS: Temperature 36.6, pulse 108, respiratory rate 12, blood pressure 165/109. GENERAL: Awake, alert, oriented x3, in no acute distress, seated upright in a chair. HEENT: Normocephalic, atraumatic. Pupils equal, round, reactive to light and accommodation. Extraocular muscles intact. Anicteric sclerae. Moist mucous membranes. NECK: No JVD, no bruit. CARDIOVASCULAR: Irregularly irregular. A 3/6 holosystolic ejection murmur greatest at the left sternal border, fifth intercostal space midclavicular line with radiation to the left axilla. No rubs. PULMONARY: Scant bibasilar crackles, otherwise clear. No rhonchi or wheezing. ABDOMEN: Distended, bowel sounds x4. No rebound, guarding, or tenderness. No organomegaly. EXTREMITIES: +2 bilateral lower extremity pitting edema. No clubbing or cyanosis. +2 pedal pulses bilaterally. SKIN: Warm and dry. TEST RESULTS: A 12-lead EKG performed in the Emergency Department independently reviewed at this time shows atrial flutter with approximately 2:1 conduction, poor R-wave progression across the precordium, left anterior fascicular block, no significant ST segment elevations or depressions. A 2D echocardiogram was read as normal LV chamber size with borderline global wall thinning, severely reduced LV systolic function, EF 15%-20%, severe global hypokinesis with dyskinetic anterior septal wall, presence of left atrial enlargement denotes diastolic dysfunction. Right ventricular cavity size is normal with reduced RV systolic function by TAPSE. Mild aortic valve sclerosis without stenosis, mild aortic regurgitation, mild mitral annular calcification with a heavily calcified posterior mitral annulus consistent with old healed endocarditis. No fistulous tract observed, mild intravalvular regurgitation, mild mitral stenosis is present. Mild tricuspid regurgitation, pulmonary hypertension is present with a PA systolic pressure of 41 mmHg assuming a right atrial pressure of 15 mmHg. LABORATORY STUDIES OF SIGNIFICANCE: Sodium 135, potassium 4, BUN 15, creatinine 1.2. Point of care glucose of 130. Initial troponin of 0.05 followed by 0.07. ProBNP of 8000. TSH of 2.6. Chest x-ray was read as cardiomegaly with evidence of congestive failure, perihilar airspace opacities likely represent a component of interstitial edema. Correlate clinically for evidence of a superimposed infectious or inflammatory pneumonitis. Radiographic followup to resolution is recommended. There is a small pleural effusion, right greater than left. IMPRESSION: 1. Newly discovered atrial flutter with rapid ventricular response. 2. Severe cardiomyopathy of undetermined origin, ejection fraction 15%-20%. 3. 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 4. Pulmonary hypertension. 5. Reduced right ventricular systolic function. RECOMMENDATIONS: It was my pleasure to see Mr. Stovall in consultation today. The pathophysiology of atrial flutter as well as severe cardiomyopathy was discussed with the patient and his family in great detail. They were counseled that there is a wide differential diagnosis as to the possible cause of his cardiomyopathy including tachycardia-induced cardiomyopathy and coronary artery disease. At this time, we will continue with attempted rate control of his atrial flutter and given his reduced LV systolic function, I would like to start him on beta parish and up titrate the beta parish and try and titrate off the calcium channel parish as soon as possible given his negative chronotropic effects. On exam, he is somewhat volume overloaded; however, given his pulmonary hypertension and reduced RV systolic function, I would hold off on any further diuresis at this point given the fact that he may be significantly preload dependent. He has already been started on heparin, which I agree with. I will also start him on aspirin and high-dose statin. I would recommend p.r.n. Ativan and close followup for possible delirium tremens given his significant alcohol use. The patient and his family were counseled that ultimately the patient will require cardiac catheterization and likely transesophageal echocardiogram-guided cardioversion with a cardiac catheterization likely to be done first. The patient and his family were obviously overwhelmed by this news given the fact that he has not had any significant medical history. I answered all their questions to their satisfaction and I have recommended that they will have more questions to come that he should write them down on a piece of paper and I will be happy to review them with them. For now, the patient will be monitored closely on telemetry. He has a significant risk of ventricular arrhythmia; however, I would like to try and avoid any antiarrhythmics at this point given the unknown duration of his atrial flutter and risk of a cardioembolic event, but should he develop any significant ventricular arrhythmias, amiodarone may have to be used as a potential life sustaining medication. Thank you for allowing me to participate in the care of your patient. I will follow him very closely along with you during his hospital stay.
[2018-07-23] MEDS: GABAPENTIN 600 MG TAB PO SCH (22:47)
[2018-07-24 00:06] LABS: Partial Thromboplastin Ratio 3.2
[2018-07-24 00:10] LABS: Partial Thromboplastin Time 86.5 Seconds (21.0-31.0)
[2018-07-24] MEDS: GABAPENTIN 600 MG TAB PO SCH ×3 (04:14→20:50)
[2018-07-24] MEDS: METOPROLOL TARTRATE 25 MG TAB PO SCH ×4 (04:14→23:52)
[2018-07-24 07:11] LABS: Hematocrit (blood only) 44.1 % (42-52); Hemoglobin 14.6 g/dL (14.0-18.0); Mean Corpuscular Hgb Conc 33.1 g/dL (32-36); Mean Corpuscular Volume 97.1 fL (80-100); Mean Platelet Volume 9.4 fL (7.4-10.4); Platelet Count 275 K/uL (130-400); RDW Coefficient of Variation 13.6 % (11.5-14.5); RDW Standard Deviation 48.2 fL (36.4-46.3); Red Blood Count 4.54 M/uL (4.7-6.1); White Blood Count 10.14 K/uL (4.8-10.8)
[2018-07-24 07:34] LABS: Partial Thromboplastin Ratio 2.2
[2018-07-24 07:39] LABS: Partial Thromboplastin Time 59.9 Seconds (21.0-31.0)
[2018-07-24 07:42] LABS: BUN Creatinine Ratio 16.5 (10-20); Est GFR (African American) 83.5; Est GFR (Non-African American) 72.1; Potassium 3.8 mmol/L (3.5-5.1)
[2018-07-24 07:50] LABS: Troponin I 0.056 ng/ml (0-0.045)
[2018-07-24] MEDS: ATORVASTATIN 40 MG TAB PO SCH (08:09)
[2018-07-24] MEDS: FOLIC ACID 1 MG TAB PO SCH (08:10)
[2018-07-24] MEDS: ASPIRIN 81 MG CHEW PO SCH (08:10)
[2018-07-24] MEDS: THIAMINE HCL 100 MG TAB PO SCH (08:12)
[2018-07-24] MEDS: HEPARIN STANDARD DEXTROSE 25,000 UNITS/500 ML IV SCH (08:17)
[2018-07-24] MEDS: dilTIAZem HCl 125 MG in DEXTROSE 5% 100 ML IV SCH (08:18)
--- NOTE | 2018-07-24 11:00 | Cardiology Progress Note ---
Date of Service July 24, 2018 Assessment & Plan (1) CHF (congestive heart failure): newly discovered cardiomyopathy will need to clarify ischemic vs. nonischemic nature to help determine ongoing therapies for cardiac cath in AM now will cont rate control cardizem gtt held but restarted will uptitrate metoprolol and anticipate transition to EBB ultimately will start ARB after cath will start spironolactone today will follow volume status clinically and give loop diuretics as necessary hold heparin prior to cath in AM again discussed differential diagnosis and treatment options with patient and family, all questions answered to satisfaction (2) Atrial flutter with rapid ventricular response: rates improved will increase BB with goal of stopping CCB cont heparin anticipate transition to Eliquis ultimately (3) ETOH abuse: counseled on need for cessation (4) Hypertensive urgency: improved will ultimately be adding spironolactone and ARB Subjective Pt seen and examined, states that he feels well. No problems overnight. Denies cp, sob, palpitations, lightheadedness or dizziness. tele reviewed: atrial flutter generally 4:1, some elevation of rate this AM Review of Systems All systems reviewed & are unremarkable except as noted in HPI & below Physical Exam Vital Signs (Past 24 Hours): Last Vital Signs Temp 36.8 C 07/24/18 07:13 Pulse 53 L 07/24/18 07:13 Resp 18 07/24/18 07:13 BP 144/92 H 07/24/18 07:13 Pulse Ox 95 07/24/18 07:13 (1) CHF (congestive heart failure) Heart failure type: unspecified Heart failure chronicity: acute Qualified Code(s): I50.9 - Heart failure, unspecified
[2018-07-24] MEDS: SPIRONOLACTONE 25 MG TAB PO SCH (12:32)
--- NOTE | 2018-07-24 16:03 | Hospitalist Progress Note ---
Date of Service July 24, 2018 Assessment & Plan (1) Acute systolic heart failure: Hold off with Lasix as he is somewhat preload dependent. Symptoms have improved. Planned for cardiac cath in am. (2) Atrial flutter with rapid ventricular response: heparin drip, diltiazem drip, metoprolol PO (3) Elevated troponin: likely 2/2 demand ischemia in the setting of acute heart failure with an EF 20%. Cardiac cath in am. (4) Hypertensive urgency: Patient presented with BP 222/148 and upon my examination was 166/103 Patient with likely undiagnosed hypertensive heart disease Antihyp[ertensive therapy and heart falure medication regimen per cards (5) ETOH abuse: Patient drinks 6 light beers daily, will place on alcohol withdrawal protocol with gabapentin taper and as needed lorazepam thiamine/folate daily Recommend EtOH cessation (6) Tobacco abuse: dips snuff, quit on admission, declines nicotine patch. Encouraged to stay quit. (7) DVT prophylaxis: Heparin drip Full Dispo-to home when medically stable. Elza Salazar DO [facility] Hospitalist Subjective doing well denies CP some NIKKY persists but this is imrpoved Physical Exam Vital Signs (Past 24 Hours): Last Vital Signs Temp 36.5 C 07/24/18 12:20 Pulse 120 H 07/24/18 12:20 Resp 18 07/24/18 12:20 BP 133/91 07/24/18 12:20 Pulse Ox 95 07/24/18 12:20 CONSTITUTIONAL: WNWD, vitals as above, generally well-appearing EYES: normal conjuctivae, no scleral icterus ENT: MMM RESPIRATORY: clear to auscultation bilaterally, no crackles, rales or wheezes, normal respiratory effort CARDIOVASCULAR: regular rate and rhythm, S1 and 2 heard without murmurs, gallops or rubs, no JVD, no peripheral edema GASTROINTESTINAL: normal bowel sounds, soft, nontender, nondistended MUSCULOSKELETAL: strength 5/5 throughout, head is normocephalic and atraumatic SKIN: warm and dry NEUROLOGIC: CN 2-12 grossly intact, no sensory deficit, normal cognition, no gross focal deficits. PSYCHIATRIC: alert cooperative and oriented to person, place and time. Results & Data Laboratory Results Short CBC 07/24/18 Range/Units 06:44 WBC 10.14 (4.8-10.8) K/uL Hgb 14.6 (14.0-18.0) g/dL Hct 44.1 (42-52) % Plt Count 275 (130-400) K/uL BMP 07/24/18 06:44 Sodium 139 Potassium 3.8 Chloride 107 Carbon Dioxide 26 BUN 17 Creatinine 1.05 Glucose 104 H Calcium 8.0 L Cardiac Enzymes 07/23/18 07/24/18 Range/Units 23:21 06:44 Troponin I 0.061 H* 0.056 H* (0-0.045) ng/ml Medications Administered Current Inpatient Medications Acetaminophen (Tylenol) 650 mg PO Q4H PRN PRN Reason: Pain or Fever Stop: 08/22/18 16:17 Al Hydrox/Mg Hydrox/Simethicone (Maalox) 15 ml PO Q4H PRN PRN Reason: Dyspepsia Stop: 08/22/18 16:17 Aspirin (Aspirin Chew) 81 mg PO DAILY [facility] Stop: 08/23/18 08:59 Last Admin: 07/24/18 08:10 Dose: 81 mg Documented by: Atorvastatin Calcium (Lipitor) [facility] [place]: 08/22/18 17:44 Last Admin: 07/24/18 08:09 Dose: 80 mg Documented by: Folic Acid (Folvite) [facility] [place]: 08/23/18 08:59 Last Admin: 07/24/18 08:10 Dose: 1 mg Documented by: Gabapentin (Neurontin) 600 mg PO Q12H [facility] Stop: 07/26/18 04:01 Gabapentin (Neurontin) 600 mg PO Q8H [facility] Stop: 07/25/18 04:01 Last Admin: 07/24/18 12:34 Dose: 600 mg Documented by: Gabapentin (Neurontin) 600 mg PO Q24H [facility] Stop: 07/27/18 04:01 Diltiazem HCl 125 mg/ Dextrose 125 mls @ 0 mls/hr IV .Q0M [facility]; Protocol Stop: 08/22/18 14:44 Last Titration: 07/24/18 15:45 Dose: 0 mg/hr, 0 mls/hr Documented by: Heparin Sodium/Dextrose (Heparin Sodium/Dextrose) 25,000 units in 500 mls @ 28 mls/hr IV .[id number] [facility]; Protocol Stop: 08/22/18 14:44 Last Admin: 07/24/18 08:17 Dose: 1,400 units/hr, 28 mls/hr Documented by: Lorazepam (Ativan) 1 mg PO ONE PRN; Protocol PRN Reason: EtoH Withdrawal AWSS 6-10 Magnesium Hydroxide (Milk Of Magnesia) 30 ml PO Q12H PRN PRN Reason: Constipation Stop: 08/22/18 16:17 Metoprolol Tartrate (Lopressor) 25 mg PO Q6 [facility] Stop: 08/23/18 11:59 Last Admin: 07/24/18 17:29 Dose: 25 mg Documented by: Miscellaneous (Stop Order) 1 ea N/A ONE ONE Stop: 07/25/18 06:01 Polyethylene Glycol (Miralax Powder Packet) 17 gm PO DAILY PRN PRN Reason: Constipation Stop: 08/22/18 16:17 Spironolactone (Aldactone) 12.5 mg PO DAILY [facility] Stop: 08/23/18 11:14 Last Admin: 07/24/18 12:32 Dose: 12.5 mg Documented by: Thiamine HCl (Vitamin B-1) 100 mg PO QAM [facility] Stop: 08/23/18 08:59 Last Admin: 07/24/18 08:12 Dose: 100 mg Documented by: Zolpidem Tartrate (Ambien) 5 mg PO HS PRN PRN Reason: Sleep Stop: 08/22/18 16:17
[2018-07-25] MEDS: HEPARIN STANDARD DEXTROSE 25,000 UNITS/500 ML IV SCH (03:40)
[2018-07-25] MEDS: GABAPENTIN 600 MG TAB PO SCH ×2 (03:44→15:26)
[2018-07-25] MEDS ORDERED: [UNRECOGNIZED DRUG - REMARK] ONE (06:00)
[2018-07-25] MEDS: METOPROLOL TARTRATE 25 MG TAB PO SCH ×2 (06:06→12:52)
[2018-07-25 06:11] LABS: Estimated Average Glucose 123 mg/dl; Hemoglobin A1C 5.9 % (4.5-5.6)
[2018-07-25 06:13] LABS: Partial Thromboplastin Time 53.8 Seconds (21.0-31.0)
[2018-07-25 06:23] LABS: BUN Creatinine Ratio 15.8 (10-20); Calcium 8.3 mg/dl (8.5-10.1); Est GFR (African American) 89.7; Est GFR (Non-African American) 77.4; Magnesium 2.3 mg/dl (1.8-2.4); Potassium 3.9 mmol/L (3.5-5.1)
[2018-07-25] MEDS: THIAMINE HCL 100 MG TAB PO SCH (08:14)
[2018-07-25] MEDS: FOLIC ACID 1 MG TAB PO SCH (08:14)
[2018-07-25] MEDS: SPIRONOLACTONE 25 MG TAB PO SCH (08:14)
[2018-07-25] MEDS: ASPIRIN 81 MG CHEW PO SCH (08:14)
[2018-07-25] MEDS: ATORVASTATIN 40 MG TAB PO SCH (08:15)
[2018-07-25] MEDS ORDERED: MIDAZOLAM HCL 1 MG/ML 2ML VIAL ONE ×2 (08:17→10:50)
[2018-07-25] MEDS ORDERED: fentaNYL citrate 100 MCG/2 ML VIAL ONE ×2 (08:18→10:50)
[2018-07-25] MEDS ORDERED: NITROGLYCERIN/D5W 100MCG/ML 20ML SYR ONE (08:18)
[2018-07-25] MEDS ORDERED: NiCARDipine HCL INJ 2.5 MG/ML 10 ML AMP ONE (08:18)
[2018-07-25] MEDS ORDERED: HEPARIN (PORCINE) 1000 UNIT/ML 10 ML (CATH LAB USE ONLY) ONE (08:18)
--- NOTE | 2018-07-25 08:47 | Pre Anesthesia Assessment ---
Date of Service July 25, 2018 Pre Sedation Assessment Vital Signs Temp Pulse Resp BP BP Pulse Ox Pulse Ox 07/25/18 03:34 37.1 C 108 H 19 133/95 96 07/25/18 00:00 36.5 C 117 H 18 138/87 96 94 07/24/18 20:08 36.7 C 88 16 126/89 95 07/24/18 17:45 36.5 C 120 H 18 129/82 133/91 95 07/24/18 12:20 36.5 C 120 H 18 133/91 95 Cardiovascular RRR, no murmur, no edema Respiratory normal respiratory effort, lungs clear to auscultation Pre-Sedation Airway Assessment Smoking Status: Current every day smoker Hx Sleep Apnea: No Hx Difficult Intubation: No Short, Thick Neck: No Thyromental Distance: > or= 3.5 Finger Breadths Oral Cavity: + WNL Mallampati Class: III ASA: ASA3 NPO Status Date of Last Intake of Fluids: 07/24/18 Time of Last Intake of Fluids: 19:00 Date of Last Intake of Solid Food: 07/24/18 Time of Last Intake of Solid Foods: 19:00 Procedure Planning Contraindications for Sedation: none Current Medications Reviewed: Yes Notes The planned sedation has been discussed with the patient. Informed Consent was obtained. I have identified the patient, determined the appropriateness of sedation and have assessed the patient immediately prior to the procedure. All medicine(s) and interventions are by my order.
--- NOTE | 2018-07-25 08:49 | History & Physical Bridge Note ---
Date of Service July 25, 2018 History & Physical Bridge Note I have examined the patient, reviewed the History & Physical and in the interval since the performance of the History & Physical I have noted the following changes of clinical significance: no changes noted
--- NOTE | 2018-07-25 09:31 | Post Anesthesia Assessment ---
Date of Service July 25, 2018 Post Sedation Assessment Vital Signs Temp Pulse Resp BP BP Pulse Ox Pulse Ox 07/25/18 03:34 37.1 C 108 H 19 133/95 96 07/25/18 00:00 36.5 C 117 H 18 138/87 96 94 07/24/18 20:08 36.7 C 88 16 126/89 95 07/24/18 17:45 36.5 C 120 H 18 129/82 133/91 95 07/24/18 12:20 36.5 C 120 H 18 133/91 95 Recovery Score Activity: Moves 4 extremities Respiration: Deep Breath/Cough Circulation: +/-20% PreAnes Value Consciousness: Fully Awake Oxygen Saturation: O2 needed for >90% Discharge Sedation Level of Care: Fast Track Phase II Post Sedation Plan On clinical assessment, the patient appears to have tolerated the sedation without complications. Patient is recovering as anticipated. Patient will continue to be monitored by nursing and may be discharged when sedation discharge criteria are met per below protocol. Upon Completions of procedure and additional 15 minutes continue every 5 minute vital signs and the P.A.R. score; then discharge to a Phase I or Fast Track to Phase II per the following guidelines: * Discharge Patient to appropriate Phase II area if PAR is 8 or greater or return to pre- procedure baseline. The post - procedure orders will be as directed. * If PAR score is less than 8 or not return to pre-procedure baseline then patient will follow Phase I monitoring till PAR is reached for Phase II. The Phase I may be done in procedure room or may call to secure a Phase I area. * If naloxone or flumazenil are used for reversal, hold in Phase I for continued monitoring from when last reversal dose was given for a minimum of 60 minutes or longer pending the nurse and/or physician discretion of patient condition before discharge to Phase II. Please call the Sedation Physician to re-evaluate and complete post-note for discharge to Phase II area. Do NOT discharge from procedure sedation or Phase 1 until post- sedation evaluation note is complete by procedure /sedation MD Sedation Discharge Instructions to be given to the patient at discharge to home.
--- NOTE | 2018-07-25 09:31 | Cardiology Consultation ---
Date of Consultation July 25, 2018 Assessment & Plan (1) Acute systolic heart failure: 2. Severe global LV dysfunction 3. Atrial flutter with RVR 4. Alcohol abuse 5. Minimally elevated troponin Patient with new severe LV dysfunction and ASCVD risk factors. Agree with proceeding with cardiac catheterization to further evaluate etiology of new cardiomyopathy. Discussed procedure with patient including risks, benefits and is willing to proceed. No apparent contraindications to procedure. Heparin infusion discontinued 2 hours prior to procedure. Plan to perform via right radial artery. Further recommendations post procedure per Dr. Jacobo. History of Present Illness Attending Physician: Elza Salazar DO History of Present Illness Mr. Stovall is a 67-year-old man with new severe LV dysfunction for home interventional cardiology consulted for cardiac catheterization. He was admitted 2 days ago in the setting of shortness of breath, heart racing for several days. Was noted to be in atrial flutter with RVR and echo showed global LV dysfunction with an EF of 15-20%. Patient started on rate control agents, heparin infusion. Patient denies any preceding chest pain. No prior cardiac history. Endorses significant daily alcohol use. Allergies Allergy/AdvReac Type Severity Reaction Status Date / Time No Known Drug Allergies Allergy Unknown Verified 07/23/18 12:15 Home Medications Home Medications Medication Instructions Recorded Confirmed Type No Known Home Medications 07/23/18 07/23/18 History Patient History Medical History No significant past medical history History of pneumonia (Resolved) Surgical History History of vasectomy Social History Preferred Language: [place]i Beliefs That Will Affect Care: None marital status: Current Living Situation: Spouse Other Information That Helps Us Care for You: No Feels Safe at Home: Yes Safety Concerns: Feels Safe At This Time Smoking Status: Current every day smoker Hx Alcohol Use: Yes Hx Substance Use: No Review of Systems 10 point review of systems was completed and was otherwise negative unless stated in HPI Physical Exam Vital Signs (Past 24 Hours): Last Vital Signs Temp 37.1 C 07/25/18 03:34 Pulse 108 H 07/25/18 03:34 Resp 19 07/25/18 03:34 BP 133/95 07/25/18 03:34 Pulse Ox 96 07/25/18 03:34 Physical Exam: General: Comfortable, no acute distress Eyes: Sclerae anicteric, extraocular movements intact HENT: Oropharynx clear mucous membranes moist Neck: Normal carotid upstrokes, no bruits. No JVD. Lungs: Clear to auscultation bilaterally, no rhonchi or wheezes Cardiac: Regular, tachycardic, no murmurs Vascular: 2+ radial, scattered telangiectasias Abdomen: Soft, nontender, nondistended, positive bowel sounds. Extremities: Well perfused, no peripheral edema Skin: No rashes or lesions. Neuro: Nonfocal Psych: Alert orient x3, normal affect and mood
--- NOTE | 2018-07-25 09:46 | Cardiac Catheterization ---
Cardiac Cath Procedure Full Procedure Date July 25, 2018 Pre-Procedure Diagnosis Pre-Procedure Diagnosis: Cardiomyopathy AUC Score AUC Score: 7 Post-Procedure Diagnosis Post-Procedure Diagnosis: Severe CAD and Elevated Intracardiac Pressures Procedure(s) Performed Procedure(s) Performed: Coronary Angiography and Left Heart Cath Proofer Jeb Lal MD [employer] Marketing(s) Shan Estimated Blood Loss Estimated Blood Loss: 5 Medication(s) Medication(s): Fentanyl, Heparin, Lidocaine 1%, Nicardipine, Nitroglycerin and Versed Summary of Findings Indication: New cardiomyopathy, ASCVD risk factors Access: 6 Fr right radial artery Catheters: Bayard Findings: LM -angiographically normal LAD -large caliber vessel, 30% proximal to mid disease, distal luminal irregularities as wraps around apex -Large first diagonal with 40-50 % ostial stenosis, 40-50% mid segment Circumflex -large caliber vessel 20-30% proximal to mid disease, 40% distal focal disease prior to large left PLB. Small high OM1 with 80% ostial stenosis. RCA -dominant, 70-80% lateproximal focal stenosis, mid segment luminal irregularities, 50% latemid stenosis. Right PDA with luminal irregularities LVEDP -16 Arterial Closure: TR band Summary: 1. Severe single-vessel coronary artery disease -70-80% lateproximal RCA focal stenosis, 50% latemid RCA stenosis 30% proximal to mid LAD, 40-50% proximal first diagonal 40% distal circumflex, 80% ostial small high OM1 2. Borderline elevated intracardiac filling pressure Recommendations: Nonischemic cardiomyopathy -- no high risk disease that would be responsible for severe global LV dysfunction noted on echocardiogram. Rate/rhythm control, guideline directed medical therapy per Dr. Jacobo Continued ASCVD risk factor modification In the future, if refractory anginal symptoms on medical therapy proximal RCA lesion amenable to PCI. 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
[2018-07-25] MEDS ORDERED: GLYCOPYRROLATE 0.2 MG/ML VIAL ONE (10:50)
[2018-07-25] MEDS ORDERED: BENZOCAIN/TETRACA/BUTAM SPRAY 200 APPLN/20 GM SPRY EXT ONE (10:50)
[2018-07-25] MEDS ORDERED: CANNULA ONE (10:51)
--- NOTE | 2018-07-25 11:07 | Cardiology Progress Note ---
Date of Service July 25, 2018 Assessment & Plan (1) CHF (congestive heart failure): newly discovered cardiomyopathy cardiac cath without significant disease will proceed with SABRINA/Cardioversion pt very anxious to complete workup, will perform today risks/benefits once again reviewed, patient agreeable and accepting of risks cont to hold heparin till after SABRINA plan to start ARB tomorrow will transition metoprolol to succinate tomorrow cont spironolactone will consider Entresto as well (2) Atrial flutter with rapid ventricular response: rates improved will increase BB with goal of stopping CCB cont heparin anticipate transition to Eliquis ultimately (3) ETOH abuse: counseled on need for cessation (4) Hypertensive urgency: improved will ultimately be adding spironolactone and ARB Subjective Pt seen and examined, prior to and following cardiac cath. States that he feels well. Anxious prior to cath but no reassured after no significant disease found. No complaints overnight. Denies cp, sob, palpitations, lightheadedness or dizziness. tele reviewed: atrial flutter with variable AV conduction Review of Systems All systems reviewed & are unremarkable except as noted in HPI & below Physical Exam Vital Signs (Past 24 Hours): Last Vital Signs Temp 36.8 C 07/25/18 09:46 Pulse 118 H 07/25/18 10:31 Resp 16 07/25/18 10:31 BP 147/87 H 07/25/18 10:31 Pulse Ox 91 07/25/18 10:31 Physical Exam: General: Awake, alert and oriented x 3. No acute distress. HEENT: Normocephalic, atraumatic. Pupils equal, round and reactive to light and accommodation. Extraocular muscles are intact. Anicteric sclera. Moist mucous membranes. Neck: No JVD. No bruit. Cardiovascular: irregularly irregular, unable to appreciate murmur, rub or gallop. Pulmonary: Clear to auscultation bilaterally. No rales, rhonchi, or wheezing. Abdomen: Bowel sounds x 4, soft. No rebound, guarding or tenderness. No organomegaly. Extremities: No clubbing, cyanosis or edema. +2 pedal pulses bilaterally. Skin: Warm and dry. (1) CHF (congestive heart failure) Heart failure type: unspecified Heart failure chronicity: acute Qualified Code(s): I50.9 - Heart failure, unspecified
--- NOTE | 2018-07-25 11:44 | Pre Anesthesia Assessment ---
Date of Service July 25, 2018 Pre Sedation Assessment Vital Signs Temp Pulse Pulse Resp BP BP Pulse Ox 07/25/18 11:22 36.7 C 117 H 14 180/115 H 96 07/25/18 11:01 116 H 16 144/108 H 94 07/25/18 10:31 118 H 16 147/87 H 91 07/25/18 10:16 117 H 16 137/100 94 07/25/18 10:01 116 H 16 153/100 H 92 07/25/18 09:46 36.8 C 117 H 16 143/98 H 92 07/25/18 08:00 117 H 07/25/18 03:34 37.1 C 108 H 19 133/95 96 07/25/18 00:00 36.5 C 117 H 18 138/87 96 07/24/18 20:08 36.7 C 88 16 126/89 95 07/24/18 17:45 36.5 C 120 H 18 129/82 133/91 95 07/24/18 12:20 36.5 C 120 H 18 133/91 95 Pulse Ox 07/25/18 11:22 07/25/18 11:01 07/25/18 10:31 07/25/18 10:16 07/25/18 10:01 07/25/18 09:46 07/25/18 08:00 07/25/18 03:34 07/25/18 00:00 94 07/24/18 20:08 07/24/18 17:45 07/24/18 12:20 Pre-Sedation Airway Assessment Smoking Status: Current every day smoker Hx Sleep Apnea: No Hx Difficult Intubation: No Short, Thick Neck: No Thyromental Distance: > or= 3.5 Finger Breadths Oral Cavity: + WNL Mallampati Class: III ASA: ASA3 NPO Status Date of Last Intake of Fluids: 07/24/18 Time of Last Intake of Fluids: 19:00 Date of Last Intake of Solid Food: 07/24/18 Time of Last Intake of Solid Foods: 19:00 Notes The planned sedation has been discussed with the patient. Informed Consent was obtained. I have identified the patient, determined the appropriateness of sedation and have assessed the patient immediately prior to the procedure. All medicine(s) and interventions are by my order.
--- NOTE | 2018-07-25 12:06 | Post Anesthesia Assessment ---
Date of Service July 25, 2018 Post Sedation Assessment Vital Signs Temp Pulse Pulse Resp BP BP Pulse Ox 07/25/18 11:57 120 H 24 144/108 H 94 07/25/18 11:52 118 H 24 150/106 H 95 07/25/18 11:47 119 H 24 162/69 H 99 07/25/18 11:22 36.7 C 117 H 14 180/115 H 96 07/25/18 11:01 116 H 16 144/108 H 94 07/25/18 10:31 118 H 16 147/87 H 91 07/25/18 10:16 117 H 16 137/100 94 07/25/18 10:01 116 H 16 153/100 H 92 07/25/18 09:46 36.8 C 117 H 16 143/98 H 92 07/25/18 08:00 117 H 07/25/18 03:34 37.1 C 108 H 19 133/95 96 07/25/18 00:00 36.5 C 117 H 18 138/87 96 07/24/18 20:08 36.7 C 88 16 126/89 95 07/24/18 17:45 36.5 C 120 H 18 129/82 133/91 95 07/24/18 12:20 36.5 C 120 H 18 133/91 95 Pulse Ox 07/25/18 11:57 07/25/18 11:52 07/25/18 11:47 07/25/18 11:22 07/25/18 11:01 07/25/18 10:31 07/25/18 10:16 07/25/18 10:01 07/25/18 09:46 07/25/18 08:00 07/25/18 03:34 07/25/18 00:00 94 07/24/18 20:08 07/24/18 17:45 07/24/18 12:20 Recovery Score Activity: Moves 4 extremities Respiration: Deep Breath/Cough Circulation: +/-20% PreAnes Value Consciousness: Fully Awake Oxygen Saturation: O2 needed for >90% Discharge Sedation Level of Care: Fast Track Phase II Post Sedation Plan On clinical assessment, the patient appears to have tolerated the sedation without complications. Patient is recovering as anticipated. Patient will continue to be monitored by nursing and may be discharged when sedation discharge criteria are met per below protocol. Upon Completions of procedure and additional 15 minutes continue every 5 minute vital signs and the P.A.R. score; then discharge to a Phase I or Fast Track to Phase II per the following guidelines: * Discharge Patient to appropriate Phase II area if PAR is 8 or greater or return to pre- procedure baseline. The post - procedure orders will be as directed. * If PAR score is less than 8 or not return to pre-procedure baseline then patient will follow Phase I monitoring till PAR is reached for Phase II. The Phase I may be done in procedure room or may call to secure a Phase I area. * If naloxone or flumazenil are used for reversal, hold in Phase I for continued monitoring from when last reversal dose was given for a minimum of 60 minutes or longer pending the nurse and/or physician discretion of patient condition before discharge to Phase II. Please call the Sedation Physician to re-evaluate and complete post-note for discharge to Phase II area. Do NOT discharge from procedure sedation or Phase 1 until post- sedation evaluation note is complete by procedure /sedation MD Sedation Discharge Instructions to be given to the patient at discharge to home.
--- NOTE | 2018-07-25 12:10 | Operative Report ---
Post Operative Report Pre & Post Diagnosis atrial flutter with rapid ventricular response Procedure Informed consent obtained pt prepped received Robinol 0.4mg Conscious moderate sedation achieved with a total of Versed 3mg and Fentanyl 75mcg SABRINA performed, RAMO well visualized: no thrombus present SABRINA discontinued prematurely due to patient agitation pt repositioned, no further sedation needed 300J of synchronized DC energy delivered with successful cardioversion to sinus rhythm pt tolerated well to be recovered per protocol start time: 1147 stop time: 1158 Plan: recover per protocol return to tele Surgeon Aaron Jacobo DO Obstetrical Nurse none Estimated Blood Loss 0 Findings Consistent with Post-Op Diagnosis Specimens none Description of Procedure SABRINA guided cardioversion I attest to the content of the Intraoperative Record and any orders documented therein. Any exceptions are noted below.
[2018-07-25] MEDS ORDERED: METOPROLOL SUCC 50MG EXT REL TAB PO STA (15:10)
--- NOTE | 2018-07-25 18:01 | Hospitalist Progress Note ---
Date of Service July 25, 2018 Assessment & Plan (1) Acute systolic heart failure: compensated after Lasix (2) Atrial flutter with rapid ventricular response: s/p SABRINA today with DCCV, cont heparin drip (3) Hypertensive urgency: -Patient presented with BP 222/148 and upon my examination was 166/103 -Patient with likely undiagnosed hypertensive heart disease contolled on current therapy (4) ETOH abuse: -no evidence of alcohol withdrawal -Will place on thiamine and folic acid supplementation daily -Recommend EtOH cessation (5) Tobacco abuse: -Patient currently does not wish to have nicotine patch, monitor -Discussed tobacco cessation (6) DVT prophylaxis: heparin drip full code dispo-to home in am. Elza Salazar DO [facility] Hospitalist Subjective s/p SABRINA with DCCV and maintains in sinus rhythm denies chest pain or sob feels better than since admission Physical Exam Vital Signs (Past 24 Hours): Last Vital Signs Temp 36.5 C 07/25/18 15:48 Pulse 79 07/25/18 15:48 Resp 18 07/25/18 15:48 BP 114/89 07/25/18 15:48 Pulse Ox 91 07/25/18 15:48 CONSTITUTIONAL: WNWD, vitals as above, generally well-appearing EYES: normal conjuctivae, no scleral icterus ENT: MMM RESPIRATORY: clear to auscultation bilaterally, no crackles, rales or wheezes, normal respiratory effort CARDIOVASCULAR: regular rate and rhythm, S1 and 2 heard without murmurs, gallops or rubs, no JVD, no peripheral edema GASTROINTESTINAL: normal bowel sounds, soft, nontender, nondistended MUSCULOSKELETAL: strength 5/5 throughout, head is normocephalic and atraumatic SKIN: warm and dry NEUROLOGIC: CN 2-12 grossly intact, no sensory deficit, normal cognition, no gross focal deficits. PSYCHIATRIC: alert cooperative and oriented to person, place and time. Results & Data Laboratory Results [facility] 07/25/18 05:17 Sodium 140 Potassium 3.9 Chloride 107 Carbon Dioxide 27 BUN 16 Creatinine 0.99 Glucose 105 H Calcium 8.3 L
[2018-07-25 22:22] LABS: Partial Thromboplastin Ratio 1.7
[2018-07-25 22:25] LABS: Partial Thromboplastin Time 45.2 Seconds (21.0-31.0)
[2018-07-25] MEDS ORDERED: HEPARIN IV BOLUS 4,000 UNITS in SYRINGE 0 ML IV ONE (22:45)
[2018-07-26] MEDS: GABAPENTIN 600 MG TAB PO SCH (04:09)
[2018-07-26] MEDS: HEPARIN STANDARD DEXTROSE 25,000 UNITS/500 ML IV SCH (04:10)
[2018-07-26 06:56] LABS: Hematocrit (blood only) 42.6 % (42-52); Hemoglobin 14.5 g/dL (14.0-18.0); Mean Corpuscular Volume 95.7 fL (80-100); Mean Platelet Volume 10.2 fL (7.4-10.4); Platelet Count 276 K/uL (130-400); RDW Coefficient of Variation 13.6 % (11.5-14.5); RDW Standard Deviation 47.7 fL (36.4-46.3); Red Blood Count 4.45 M/uL (4.7-6.1); White Blood Count 10.08 K/uL (4.8-10.8)
[2018-07-26 07:20] LABS: Partial Thromboplastin Time 81.2 Seconds (21.0-31.0)
[2018-07-26] MEDS: ATORVASTATIN 40 MG TAB PO SCH (07:39)
[2018-07-26] MEDS: SPIRONOLACTONE 25 MG TAB PO SCH (07:39)
[2018-07-26] MEDS: THIAMINE HCL 100 MG TAB PO SCH (07:40)
[2018-07-26] MEDS: VALSARTAN 80 MG TAB PO SCH (07:40)
[2018-07-26] MEDS: ASPIRIN 81 MG CHEW PO SCH (07:41)
[2018-07-26] MEDS: FOLIC ACID 1 MG TAB PO SCH (07:42)
[2018-07-26] MEDS ORDERED: METOPROLOL SUCC 50MG EXT REL TAB PO SCH ×2 (09:00)
[2018-07-26] MEDS ORDERED: METOPROLOL SUCC 50MG EXT REL TAB PO STA (14:03)
--- NOTE | 2018-07-26 15:18 | Cardiology Progress Note ---
Date of Service July 26, 2018 Assessment & Plan (1) CHF (congestive heart failure): newly discovered cardiomyopathy cardiac cath without significant disease converted to sinus on 07/25 will treat for NICM will give additional metoprolol 50mg now and increase daily to 150mg daily cont spironolactone, valsartan, does not examine as volume overloaded, no need for loop, will d/c home with prn lasix will follow rates as outpatient to determine if candidate to Entresto likely d/c to home in AM (2) Atrial flutter with rapid ventricular response: currently sinus cont metoprolol will d/c heparin and start Eliquis 5mg po bid (3) ETOH abuse: counseled on need for cessation (4) Hypertensive urgency: improved well controlled. Subjective Pt seen and examined, without complaint. Denies cp, sob, palpitations, lightheadedness or dizziness. Tele reviewed: sinus rhythm without arrhythmia or significant ectopy. Review of Systems All systems reviewed & are unremarkable except as noted in HPI & below Physical Exam Vital Signs (Past 24 Hours): Last Vital Signs Temp 37.4 C 07/26/18 12:00 Pulse 82 07/26/18 12:00 Resp 18 07/26/18 12:00 BP 136/81 07/26/18 12:00 Pulse Ox 93 07/26/18 12:00 Physical Exam: General: Awake, alert and oriented x 3. No acute distress. HEENT: Normocephalic, atraumatic. Pupils equal, round and reactive to light and accommodation. Extraocular muscles are intact. Anicteric sclera. Moist mucous membranes. Neck: No JVD. No bruit. Cardiovascular: Regular. Positive S-4. Normal S-1 and S-2. No S-3. No murmurs or rubs. Pulmonary: Clear to auscultation B/L. No rales, rhonchi or wheezing Abdomen: Bowel sounds x 4, soft. No rebound, guarding or tenderness. No organomegaly. Extremities: No clubbing, cyanosis or edema. +2 pedal pulses bilaterally. Skin: Warm and dry. (1) CHF (congestive heart failure) Heart failure type: unspecified Heart failure chronicity: acute Qualified Code(s): I50.9 - Heart failure, unspecified
[2018-07-26] MEDS: APIXABAN 5 MG TABLET PO SCH (19:59)
--- NOTE | 2018-07-26 21:49 | Hospitalist Progress Note ---
Date of Service July 26, 2018 Assessment & Plan (1) NICM (nonischemic cardiomyopathy): spironolactone, valsartan, ASA, Torpol XL, ASA. Repeat echo on cards followup (2) Atrial fibrillation: rate control with Toprol, Eliquis (3) HTN (hypertension): controlled, Toprol XL, Valsartan 80 (4) Elevated troponin: likely 2/2 demand ischemia in the setting of acute heart failure with an EF 20%. (5) ETOH abuse: Patient drinks 6 light beers daily, will place on alcohol withdrawal protocol with gabapentin taper and as needed lorazepam thiamine/folate daily Recommend EtOH cessation (6) Tobacco abuse: dips snuff, quit on admission, declines nicotine patch. Encouraged to stay quit. (7) DVT prophylaxis: Eliquis Full Dispo-to home in am. PCP appointment set up-see [facility] outpatient. Elza Salazar DO [facility] Hospitalist Subjective doing well post catheterization Denies CP or SOB HAs been walking around his room. Physical Exam Vital Signs (Past 24 Hours): Last Vital Signs Temp 36.9 C 07/26/18 19:51 Pulse 79 07/26/18 19:51 Resp 18 07/26/18 19:51 BP 135/88 07/26/18 19:51 Pulse Ox 97 07/26/18 19:51 CONSTITUTIONAL: WNWD, vitals as above, generally well-appearing EYES: normal conjuctivae, no scleral icterus ENT: MMM RESPIRATORY: clear to auscultation bilaterally, no crackles, rales or wheezes, normal respiratory effort CARDIOVASCULAR: regular rate and rhythm, S1 and 2 heard without murmurs, gallops or rubs, no JVD, no peripheral edema GASTROINTESTINAL: normal bowel sounds, soft, nontender, nondistended MUSCULOSKELETAL: strength 5/5 throughout, head is normocephalic and atraumatic SKIN: warm and dry NEUROLOGIC: CN 2-12 grossly intact, no sensory deficit, normal cognition, no gross focal deficits. PSYCHIATRIC: alert cooperative and oriented to person, place and time. Results & Data Laboratory Results Short CBC 07/26/18 Range/Units 06:17 WBC 10.08 (4.8-10.8) K/uL Hgb 14.5 (14.0-18.0) g/dL Hct 42.6 (42-52) % Plt Count 276 (130-400) K/uL Medications Administered Current Inpatient Medications Acetaminophen (Tylenol) 650 mg PO Q4H PRN PRN Reason: Pain or Fever Stop: 08/22/18 16:17 Al Hydrox/Mg Hydrox/Simethicone (Maalox) 15 ml PO Q4H PRN PRN Reason: Dyspepsia Stop: 08/22/18 16:17 Apixaban (Eliquis) 5 mg PO BID [facility] Stop: 08/25/18 20:59 Last Admin: 07/26/18 19:59 Dose: 5 mg Documented by: Aspirin (Aspirin Chew) 81 mg PO DAILY [facility] Stop: 08/23/18 08:59 Last Admin: 07/26/18 07:41 Dose: 81 mg Documented by: Atorvastatin Calcium (Lipitor) 80 mg PO QAM [facility] Stop: 08/22/18 17:44 Last Admin: 07/26/18 07:39 Dose: 80 mg Documented by: Folic Acid (Folvite) [facility] Stop: 08/23/18 08:59 Last Admin: 07/26/18 07:42 Dose: 1 mg Documented by: Gabapentin (Neurontin) 600 mg PO Q24H [facility] Stop: 07/27/18 04:01 Lorazepam (Ativan) 1 mg PO ONE PRN; Protocol PRN Reason: EtoH Withdrawal AWSS 6-10 Magnesium Hydroxide (Milk Of Magnesia) 30 ml PO Q12H PRN PRN Reason: Constipation Stop: 08/22/18 16:17 Metoprolol Succinate (Toprol Xl) 100 mg PO [facility] Stop: 08/25/18 08:59 Last Admin: 07/26/18 09:55 Dose: 50 mg Documented by: Polyethylene Glycol (Miralax Powder Packet) 17 gm PO DAILY PRN PRN Reason: Constipation Stop: 08/22/18 16:17 Spironolactone (Aldactone) 12.5 mg PO DAILY [facility] Stop: 08/23/18 11:14 Last Admin: 07/26/18 07:39 Dose: 12.5 mg Documented by: Thiamine HCl (Vitamin B-1) 100 mg PO QAM [facility] Stop: 08/23/18 08:59 Last Admin: 07/26/18 07:40 Dose: 100 mg Documented by: Valsartan (Diovan) 80 mg [facility] Stop: 08/25/18 08:59 Last Admin: 07/26/18 07:40 Dose: 80 mg Documented by: Zolpidem Tartrate (Ambien) 5 mg PO HS PRN PRN Reason: Sleep Stop: 08/22/18 16:17
[2018-07-27] MEDS ORDERED: GABAPENTIN 600 MG TAB PO SCH (04:00)
[2018-07-27] MEDS ORDERED: METOPROLOL SUCC 50MG EXT REL TAB PO SCH (09:00)
[2018-07-27 09:29] LABS: BUN Creatinine Ratio 15.8 (10-20); Calcium 8.5 mg/dl (8.5-10.1); Creatinine Clr Calc Pharmacy 80.9 ml/min; Est GFR (African American) 81.7; Est GFR (Non-African American) 70.5; Potassium 4.4 mmol/L (3.5-5.1)
[2018-07-27] MEDS: THIAMINE HCL 100 MG TAB PO SCH (09:34)
[2018-07-27] MEDS: FOLIC ACID 1 MG TAB PO SCH (09:34)
[2018-07-27] MEDS: ASPIRIN 81 MG CHEW PO SCH (09:34)
[2018-07-27] MEDS: ATORVASTATIN 40 MG TAB PO SCH (09:34)
[2018-07-27] MEDS: VALSARTAN 80 MG TAB PO SCH (09:34)
[2018-07-27] MEDS: APIXABAN 5 MG TABLET PO SCH (09:34)
[2018-07-27] MEDS: SPIRONOLACTONE 25 MG TAB PO SCH (09:34)
[2018-07-27 11:44] VITALS: BP 138/89; PULSE 70; TEMP 97.5; O2SAT 96
--- NOTE | 2018-07-27 13:36 | Cardiology Progress Note ---
Date of Service July 27, 2018 Assessment & Plan (1) CHF (congestive heart failure): newly discovered cardiomyopathy cardiac cath without significant disease converted to sinus on 07/25 will treat for NICM pt to be discharged on: metoprolol succinate 150mg mg po daily asa 81mg daily spironolactone 12.5mg daily valsartan 80mg daily atorvastatin 80mg daily lasix 40mg po daily prn sob/volume overload Eliquis 5mg po bid my office will call to arrange echo in 4 weeks and f/u with me in 5 ok to d/c (2) Atrial flutter with rapid ventricular response: currently sinus cont metoprolol Eliquis 5mg po bid (3) ETOH abuse: counseled on need for cessation (4) Hypertensive urgency: improved well controlled. Subjective Pt seen and examined, without complaint. Denies cp, sob, palpitations, lightheadedness or dizziness. Tele reviewed: sinus rhythm without arrhythmia or significant ectopy. Physical Exam Vital Signs (Past 24 Hours): Last Vital Signs Temp 36.4 C L 07/27/18 11:41 Pulse 70 07/27/18 11:41 Resp 16 07/27/18 11:41 BP 138/89 07/27/18 11:41 Pulse Ox 96 07/27/18 11:41 Physical Exam: General: Awake, alert and oriented x 3. No acute distress. HEENT: Normocephalic, atraumatic. Pupils equal, round and reactive to light and accommodation. Extraocular muscles are intact. Anicteric sclera. Moist mucous membranes. Neck: No JVD. No bruit. Cardiovascular: Regular. Positive S-4. Normal S-1 and S-2. No S-3. No murmurs or rubs. Pulmonary: Clear to auscultation B/L. No rales, rhonchi or wheezing Abdomen: Bowel sounds x 4, soft. No rebound, guarding or tenderness. No organomegaly. Extremities: No clubbing, cyanosis or edema. +2 pedal pulses bilaterally. Skin: Warm and dry. (1) CHF (congestive heart failure) Heart failure type: unspecified Heart failure chronicity: acute Qualified Code(s): I50.9 - Heart failure, unspecified
--- NOTE | 2018-07-27 14:56 | Discharge Summary ---
Date of Service July 27, 2018 Admission HPI Per Admitting Provider This is a 67-year-old white male who has no known past medical history and has not sought medical care for 30+ years. is at bedside. He presents to [facility] secondary to FLORES times 3 weeks. Over the past 3 weeks patient has noticed increasing shortness of breath with exertion, including climbing steps at his house, paroxysmal nocturnal dyspnea relieved with sleeping in recliner, increased fatigue. Patient noticed yesterday when feeling pulse his heart was "beating very fast." "This may be scared which is why I came to ER." He denies any recent illness. He does not take any medicati ons. He denies fever, chills, sweats, lightheadedness, dizziness, syncope, chest pain, shortness of breath at rest, coughing, hemoptysis, nausea, vomiting, diarrhea, abdominal pain, dysuria, increased frequency or urgency with urination. He denies any harvey weight gain and no overt swelling. He is a chronic tobacco abuser in which he chews 1 can of snuff a day and has a previous smoking history of 15-20 pack years. Further he drinks 6 light beers a day for many years. His father suffered a heart attack in his 30s, otherwise no known family history of heart disease, diabetes or CVA. His mother and father were both from cancer. Principal Diagnosis AFIB S/P CARDIOVERSION /CHF WITH DIASTOLIC DYSFUNCTION /NON ISCHEMIC CARDIOMYOPAHTY Discharge Exam GENERAL: No sign of distress, HEENT: Sclera nonicteric, pink-purple bilateral equal reactive to light extraocular muscle intact Normal oral mucosa, neck: No JVD, no thyromegaly, trachea midline Lungs: Clear to auscultate, no wheeze or rales Cardiovascular: Regular S1 and S2, no murmur or gallop, no JVD, no lower extremity edema Abdomen: Soft, nontender, bowel sounds active, no hepatosplenomegaly Extremities: No rash or deformity, normal joint, Neuro: No focal neurological deficit, no dysarthria, no facial droop Psych: Alert awake oriented x3: Euthymic Skin: No rash LYMPH NODES: No cervical lymphadenopathy Discharge Data Allergies Allergy/AdvReac Type Severity Reaction Status Date / Time No Known Drug Allergies Allergy Unknown Verified 07/23/18 12:15 Consultations 07/23/18 13:47 ED Decision to Admit Stat 07/23/18 16:18 Consult Cardiology Routine 07/25/18 08:00 Consult Cardiac Catheterization Routine Procedures Performed Operation Date: 07/25/18 08:00 Actual Procedures p Cath, Left with Cors and Vent - Ever Lal MD s Cineradiography w/Routine Exam - Ever Lal MD Operation Date: 07/25/18 08:30 <No data on this case meets the specified criteria> Operation Date: 07/25/18 11:00 Actual Procedures s Cardioversion(Not Applicable) - Aaron Jacobo, DO p Transesophageal Echo(Not Applicable) - Aaron Jacobo, Ordered Studies 07/25/18 08:19 CL Cath Imgs for PACS use only Routine Hospital Course (1) NICM (nonischemic cardiomyopathy): Presents with a week history of shortness of breath, dyspnea on exertion, volume overload Chest x-ray showed pulmonary congestion, responded well to IV diuresis Medication changed p.o. Aldactone, valsartan Added Torpol XL, ASA 81 mg daily (patient was not taking any medication at home) Echocardiogram: 07/23/2018: Normal LV chamber size with borderline global. Severely reduced LV systolic function EF 15-20% Severe global hypokinesis with dyskinetic anteroseptal wall. Presence of left atrial enlargement that denotes diastolic dysfunction Cardiac cath: Showed minimally occlusive coronary artery disease Evidence of nonischemic cardiomyopathy Appreciate input from cardiology patient started with Aldactone 12.5 mg, valsartan 80 mg, Toprol XL 150 mg daily, aspirin 81 mg daily Lasix 20 mg daily as needed for lower extremity edema, weight gain Patient is given instruction for congestive heart failure, daily weight monitoring, limit salt intake (2) Atrial fibrillation: Presented with atrial flutter, required IV Cardizem drip Medication changed to Toprol-XL 150 mg daily Status post DC cardioversion, with successful SABRINA cardioversion to normal sinus started with Eliquis for stroke prophylaxis Co-pay for Eliquis $200 per month Discussed with cardiology other option is Xarelto co-pay $100 per month Most cheaper option would be Coumadin, which will require periodic lab check for INR monitoring patient refused for Coumadin does not want-lab work checked, dietary modification Okay with co-pay for Xarelto Patient remains asymptomatic, no complaint of palpitation, no shortness of breath, does not dyspnea on exertion Stable to be discharged home, 4 weeks follow-up with cardiology Dr. Aaron Jacobo (3) HTN (hypertension): BP controlled, Patient is continued with Toprol-XL, valsartan, Aldactone, ordered for as needed Lasix will follow up with family physician Dr. Fazal Monge for further BP monitoring (4) Elevated troponin: Type II [place]/likely 2/2 demand ischemia in the setting of acute heart failure with an EF 20%. /Rapid A. fib a flutter on presentation cardiac cath showed Minimum occlusive coronary artery disease no evidence of acute coronary event Status post cardioversion to normal sinus, rate controlled with Toprol-XL, patient started with diuretics for nonischemic cardiomyopathy will follow with cardiology in office (5) ETOH abuse: Patient drinks 6 light beers daily, no evidence of withdrawal symptoms thiamine/folate daily counselled for EtOH cessation-will cause worsen of CHF with diastolic dysfunction (6) Tobacco abuse: dips snuff, quit on admission, declines nicotine patch. Encouraged to stay quit. (7) DVT prophylaxis: Eliquis Full CODE DISPOSITION ; stable to be discharged home Total Time Total Time Spent Total Time Spent (In Minutes): 40 mins Total Time Includes: Examination of the Patient, Discharge Planning, Medication Reconciliation and Communication With Other Providers Discharge Plan Discharge Items Patient Disposition: Home - Self-Care Reason For Visit: ATRIAL FLUTTER Discharge Diagnosis: ATRIAL FLUTTER /CARDIO VERSION/CONGESTIVE HEART FAILURE Discharge Goals: Decrease discomfort Activity: Resume your previous activity Non-emergency contact: Primary Care Provider Call non-emergency contact if: you have any medication questions and your symptoms worsen Follow-up/Referrals: Aaron Jacobo DO [Physician] - (CARDIOLOGY FOLLOW UP IN 2-3 WEEKS , OFFICE WILL CALL WITH APPOINTMENT ) Fazal Monge [Physician] - 07/29/18 11:00 am (HOSPITAL FOLLOW UP ) PCP,NO [Primary Care Provider] - Diet: Heart Healthy Addtl Provider Instructions: IT IS VERY IMPORTANT TO FOLLOW UP WITH DOCTORS AND TAKE MEDICATIONS INSTRUCTED NEED TO QUIT DRINKING ALCOHOL Call your Primary Care doctor if any of the following symptoms or problems start or get worse: * Shortness of breath or difficulty breathing * Wake up at night short of breath * Chest pain * Cough * Swelling of your hands, feet, or legs * More fatigued or tired with your normal activity * Palpitations - sudden fast heart beats WEIGHT * Weigh yourself every morning after using the bathroom. * Use the same scale. * Wear the same amount of clothing. * Write your weight down on a chart. * Call your Primary Care doctor if you gain more than 2-3 pounds in 1-2 days. MEDICATIONS * Use this discharge instruction sheet for medication instructions. * Take your medications at the time your doctor ordered. * Do not skip a dose of your medicines. * If you miss a dose of medicine, take it as soon as possible, but DO NOT DOUBLE A DOSE. * Read your medicine information when you get home. * Know all of the side effects of your medicine. If in doubt, ask your p harmacist * Call your Primary Care doctor's office if you have any side effects. * Be sure all of your doctors know what medicine and herbs you take (including cold, flu, and herbal medicine). Take the following with you to your follow-up doctor appointments: * Weight Chart * Medication List * List of questions Do not drink excessive alcohol, beer or wine. Prescriptions: New atorvastatin 40 mg Tablet 80 mg PO QAM 30 Days Qty: 60 RF: 0 thiamine HCl (vitamin B1) [Vitamin B-1] 100 mg Tablet 100 mg PO QAM 30 Days Qty: 30 RF: 0 valsartan [Diovan] 80 mg Tablet 80 mg PO QAM 30 Days Qty: 30 RF: 0 spironolactone 25 mg Tablet 12.5 mg PO DAILY 30 Days Qty: 15 RF: 0 aspirin 81 mg Tablet,Chewable 81 mg PO DAILY 30 Days Qty: 30 RF: 0 folic acid 1 mg Tablet 1 mg PO QAM 30 Days Qty: 30 RF: 0 metoprolol succinate [Toprol XL] 100 mg tablet extended release 24 hr 150 mg PO DAILY 30 Days Qty: 45 RF: 0 furosemide [Lasix] 20 mg tablet 20 mg PO DAILY PRN (Reason: LEG SWELLING /WEIGHT GAIN) Qty: 30 RF: 0 Xarelto 20 mg tablet 20 mg PO DAILY 30 Days Qty: 30 RF: 0 Stand-Alone Forms: [employer]/Other Patient Handouts: Heart Failure, Heart Failure Warning Signs, Heart Failure Tracking Weight, Heart Failure Diet Changes Discharge Orders: Discharge Order (Routine); Ordered 07/27/18 Ordered By: Chen Dexter Admission Data Admit Date/Time: 07/23/18 14:18 Attending Provider: Chen Dexter Admit Provider: Elza Salazar Primary Care Provider: PCP,NO Other Providers: Aaron Jacobo ; Elza Salazar ; Ever Lal Service: Telemetry Other Interventions: Discharge Summary Assessment (RN) Last Done: 07/24/18 17:45 DC Date/Time DO NOT enter until pt leaves facility: 07/27/18 16:00
== END 2018-07-27 16:00 | disposition home or self-care (01) | DRG 286 ==
LOC: ED 11:33 → SUATTDRO 14:18 → 2E 14:18
PROC: CLS.TEE (2018-07-25 11:00)